=== PATIENT | male | born 1995 | race African-American/Black ===

== ENCOUNTER 2020-08-13 16:15 | Emergency (ER) | payer OTHER ==
--- OUTSIDE RECORDS SUMMARY | 2020-08-13 16:21 | XMS REPORT | Continuity of Care Document ---
:1995 Author Organization [facility] t Address [address] [place] [address] Care Team Providers Name Role Phone LIZETT Attending Clinician Unavailable BETTY Attending Clinician Unavailable Manuel Hernández Attending Clinician Sadaf Rodriguez Attending Clinician Tito Attending Clinician RUSSELL Attending Clinician Unavailable Jody Zimmerman Attending Clinician Tito Admitting Clinician Payers Payer Name Policy Type Policy Number Effective Date Expiration Date S ource Problems Condition Condition Condition Status Onset Resolution Last Treating Co mments Source Name Details Category Date Date Treatment Clinician Date BACK PAIN Diagnosis Active 2018-08-07 Memoria 01-14 19:15:00 l BACK 00:00: Zak PAIN 00 Active 01/14/2018 [facility] [place] SIDE PAIN Diagnosis Active 2017-12-02 Memoria 12-02 13:45:00 l SIDE 00:00: [place] PAIN 00 Active 12/02/2017 [facility] ACUTE PE Diagnosis Active 2018-08-07 M emoria 12-02 19:15:00 l ACUTE PE 00:00: Jose n 00 Active 12/02/2017 [facility] RIGHT ACL Diagnosis Active 2018-08-24 Memoria MCL 11-27 15:11:00 l RIGHT 07:30: [place] ACL MCL 00 Active 11/27/2017 [facility] R ACL Diagnosis Active 2017-12-24 Mem oria TEAR,MCL 11-12 11:32:00 l TEAR R ACL 00:00: [place] TEAR,MCL 00 TEAR Active 11/12/2017 [facility] Zak S83.511A - Diagnosis Active 2017-12-06 Memoria SPRAIN OF 11-07 13:18:00 l ANTERIOR S83.511A 00:01: Herm danny CRUCIATE L - SPRAIN 00 OF ANTERIOR CRUCIATE L Active 11/07/2017 [facility] SPRAIN Diagnosis Active 2018-08-24 Mem oria ANTERIOR 05-13 15:11:00 l SPRAIN 08:00: [place] ANTERIOR 00 Active 05/13/2017 [facility] PAIN R Diagnosis Active 2018-08-24 Mem oria KNEE 05-13 15:11:00 l PAIN R 08:00: [place] KNEE 00 Active 05/13/2017 [facility] LT ACL SX Diagnosis Active 2016-12-10 Memoria 09/26/1611-07 13:26:00 l LT ACL 12:00: [place] SX 00 09/26/16 Active 11/07/2016 [facility] RIGHT KNEE Diagnosis Active 2018-08-24 Memoria 09-26 15:11:00 l RIGHT 08:00: [place] KNEE 00 Active 09/26/2016 [facility] LT KNEE Diagnosis Active 2018-03-11 Me moria 09-26 14:09:00 l LT KNEE 08:00: [place] 00 Active 09/26/2016 [facility] RIGHT ACL Diagnosis Active 2018-08-24 Memoria MCL 09-26 15:11:00 l SURGERY RIGHT 08:00: [place] ACL MCL 00 SURGERY Active 09/26/2016 [facility] LEFT ACL Diagnosis Active 2016-10-16 M emoria TEAR 09-17 20:07:00 l LEFT ACL 00:00: Jose n TEAR 00 Active 09/17/2016 [facility] Zak LEFT KNEE Diagnosis Active 2017-2017-08-15 Memoria 5-07 12:12:00 l LEFT 08:00: [place] KNEE 00 Active 09/16/2016 [facility] M23.671 - Diagnosis Active 2016-07-18 Memoria OTH SPON 3-02 15:51:00 l DISRUPTION M23.671 00:01: [place] OF CAPSULA - OT SPON 00 DISRUPTION OF CAPSULA Active 07/12/2016 DILLAN [place] Acute Acute Problem Active [facility] medial medial ity of meniscal meniscal [place] tear, tear, Physici right, right, ans initial initial encounter encounter Sprain of Problem 2018-12-01 Ma moria anterior 11:10:38 l cruciate Sprain Jose n ligament of of right anterior knee, cruciate subsequent ligament encounter of right knee, subsequent encounter 12/01/2018 Enrrique Pena [facility] Sprain of Problem 2017-11-14 Me moria anterior 11:43:13 l cruciate Sprain Jose n ligament of of left anterior knee, cruciate subsequent ligament encounter of left knee, subsequent encounter 11/14/2017 [facility] Pain in Problem 2017-11-14 Elgin melba left knee 11:43:13 l Pain in [place] left knee 11/14/2017 [facility] Weakness Problem 2018-12-01 Mem oria 11:10:38 l Weakness Jose n 12/01/2018 [facility] Other Problem 2018-12-01 Memor ia abnormalit 11:10:38 l ies of Other Zak gait and abnormalit mobility ies of gait and mobility 12/01/2018 [facility] Other Problem 2018-06-17 Memor ia postproced 13:07:32 l ural Other Zak complicati postproced ons and ural disorders complicati of ons and respirator disorders y system, of not respirator elsewhere y system, classified not elsewhere classified 06/17/2018 [facility] Laryngeal Problem 2018-06-17 Ma moria spasm 13:07:32 l [place] Laryngeal spasm 06/17/2018 [facility] Hypoxemia Problem 2018-06-17 Me moria 13:07:32 l [place] Hypoxemia 06/17/2018 [facility] Other Problem 2018-06-17 Memor ia acute 13:07:32 l postproced Other Ne nn ural pain acute postproced ural pain 06/17/2018 [facility] Fall on Problem 2018-06-17 [place] melba same level 13:07:32 l from Fall on [place] slipping, same level tripping from and slipping, stumbling tripping without and subsequent stumbling striking without against subsequent object, striking initial against encounter object, initial encounter 06/17/2018 [facility] Sprain of Problem 2018-06-17 Me moria medial 13:07:32 l collateral Sprain Herm danny ligament of medial of right collateral knee, ligament initial of right encounter knee, initial encounter 06/17/2018 [facility] Other tear Problem 2018-06-17 M emoria of medial 13:07:32 l meniscus, Other Jose n current tear of injury, medial right meniscus, knee, current initial injury, encounter right knee, initial encounter 06/17/2018 [facility] Unspecifie Problem 2018-06-17 M emoria d 13:07:32 l dislocatio Jose n n of right Unspecifie knee, d initial dislocatio encounter n of right knee, initial encounter 06/17/2018 [facility] Chondromal Problem 2018-06-17 M emoria acia 13:07:32 l patellae, [place] right knee Chondromal acia patellae, right knee 06/17/2018 [facility] Other Problem 2018-06-17 Memor ia synovitis 13:07:32 l and Other [place] tenosynovi synovitis tis, right and lower leg tenosynovi tis, right lower leg 06/17/2018 [facility] Anxiety Problem 2018-06-23 [place] melba disorder, 14:16:23 l unspecifie Anxiety [place] d disorder, unspecifie d 06/23/2018 [facility] Sprain of Problem 2018-12-01 Me moria medial 11:10:38 l collateral Sprain Herm danny ligament of medial of right collateral knee, ligament subsequent of right encounter knee, subsequent encounter 12/01/2018 Enrrique Hassan [facility] Derangemen Problem 2018-12-01 M emoria t of 11:10:38 l unspecifie Jose n d medial Derangemen meniscus t of due to old unspecifie tear or d medial injury, meniscus right knee due to old tear or injury, right knee 12/01/2018 [facility] Muscle Problem 2018-08-27 Memor ia weakness 11:41:38 l (generaliz Muscle Herm danny ed) weakness (generaliz ed) 08/27/2018 [facility] Stiffness Problem 2018-12-01 Me moria of right 11:10:38 l knee, not Zak elsewhere Stiffness classified of right knee, not elsewhere classified 12/01/2018 [facility] Internal Internal Problem Active Unive rs derangemen derangemen it y of t of right t of right [place] knee knee Physici involving involving ans capsular capsular ligament ligament detention Problem 2018-08-03 Me moria (current) 14:35:14 l use of Long Zak anticoagul term ants (current) use of anticoagul ants 9 [facility] Personal Problem 2018-08-03 Mem oria history of 14:35:14 l pulmonary Personal [place] embolism history of pulmonary embolism 08/03/2018 [facility] Allergy Problem 2018-08-03 [place] melba status to 14:35:14 l penicillin Allergy [place] status to penicillin 08/03/2018 [facility] Knee pain Problem Active 2018-12-01 Me moria (finding) 11:10:38 l Knee Zak pain (finding) Active Problem 12/01/2018 Enrrique Hassan [facility], [facility] Rupture of Problem Active 2018-12-01 M emoria medial 11:10:38 l collateral Rupture [place] ligament of medial of knee collateral (disorder) ligament of knee (disorder) Active Problem 12/01/2018 RIGHT KNEE 01/2017 Enrrique Hassan [facility] OTHER Diagnosis Active 2018-08-07 Mem oria PULMONARY 19:15:00 l EMBOLISM OTHER Zak WITHOUT PULMONARY ACUTE C EMBOLISM WITHOUT ACUTE C Active [facility] Internal Internal Problem Active Unive rs derangemen derangemen it y of t of left [place] of [place] knee knee Physici ans Rupture of Rupture of Problem Active U nivers anterior anterior ity of cruciate cruciate [place] ligament ligament Physic i of right of right ans knee, knee, initial initial encounter encounter Complete Complete Problem Active Unive rs tear of tear of ity of medial medial [place] collateral collateral Ph ysici ligament ligament ans of right of right knee, knee, initial initial encounter encounter Dislocatio Dislocatio Problem Active U nivers n of right n of right it y of knee, knee, [place] initial initial Physici encounter encounter ans History of Past Illness Condition Condition Condition Status Onset Resolution Last Treating Co mments Source Name Details Category Date Date Treatment Clinician Date Pain in Problem 2018-2018-12-01 2018-12-01 Memoria right knee 1-06 11:10:38 11:10:38 l Pain in 04:15: Zak right knee 18 05/18/2018 12/01/2018 [facility] Chest Problem 2017-2018-08-03 2018-08-03 M emoria pain, 9- 14:35:14 14:35:14 l unspecifie Chest 05:00: Ne nn d pain, 00 unspecifie d 01/14/2018 08/03/2018 [facility] Other Problem 2017-2018-06-23 2018-06-23 M emoria pulmonary 8- 14:16:23 14:16:23 l embolism Other 03:09: Zak without pulmonary 35 acute cor embolism pulmonale without acute cor pulmonale 12/13/2017 06/23/2018 [facility] Sprain of Problem 2017-2018-06-17 2018-06-17 Memoria anterior 12-09 13:07:32 13:07:32 l cruciate Sprain 02:39: Jose n ligament of 22 of right anterior knee, cruciate initial ligament encounter of right knee, initial encounter 12/09/2017 06/17/2018 [facility] Allergies, Adverse Reactions, Alerts Allergy Allergy Status Severity Reaction(s) Onset Inactive Treating Comm ents Source Name Type Date Date Clinician No Known DA Active U 2019- [facility] Allergie 3-13 [place] s 00:00: d 00 [facility] No Known DA Active U [facility] Allergie - Clear s 00:00: Allen 00 [facility] No Known DA Active U [facility] Allergie 9-14 Clear s 00:00: Allen 00 [facility] penicill penicill Active Memori a ins ins l Zak traMADol traMADol Active Memori a l Zak Social History Social Habit Start Date Stop Date Quantity Comments Source Social History 2017-12-03 2017-12-03 [facility] ermann 01:36:04 01:36:04 Medications Ordered Filled Start Stop Current Ordering Indication Dosage Frequency Signature Comments Components Source Medication Medication Date Date Medication? Clinician (SIG) Name Name Ap No Notes: Memoria Flush 0.9% -04 (Same as: l 22:14: BD Zak 00 Posiflush) Promethazin Promethazin Yes HARINI VENCESEKS Q4H TAKE 1 [facility] e HCl - e HCl - 8-16 M.D. TABLET ity of 12.5 MG 12.5 MG 00:00: EVERY 4 [place] Oral Tablet Oral Tablet 00 HOURS Physici NEEDED. ans Cyclobenzap Cyclobenzap Yes HARINI BETTY Q0.3333D TAKE 1 Univers rine HCl - rine HCl - 8-06 M.D. TABLET 3 ity of 10 MG Oral 10 MG Oral 00:00: TIMES [place] Tablet Tablet 00 DAILY Physici NEEDED. ans rivaroxaban Yes 15 mg = 1 M emoria 15 mg oral 7-25 tab, PO, l tablet 20:14: Q12H, [place] 00 please complete prior to starting xarelto 20mg po daily., # 42 tab, 0 Refill(s), Pharmacy: [facility] naproxen No 500 mg = 1 Mem oria 500 mg oral 7-25 tab, PO, l tablet 20:14: Q12H, X 14 Ne nn 00 day, # 28 tab, 0 Refill(s), Pharmacy: [facility] Docusate No Notes: Memoria Sodium 100 7-25 (Same as: l MG Oral 15:14: Colace) Zak Capsule 00 (Do Not [Colace] Crush) Ketorolac No 4 days. [place] melba 7-25 l 05:27: [place] 00 Maalox No Notes: Memoria Advanced 7-25 (aluminum l Regular 04:04: hydroxide- Herm danny Strength 00 magnesium SUSP hyd-simeth icone 200-200-20 mg/5ml 30 ml ud RO) Naprosyn No Notes: Memoria 7-25 (Same as: l 02:55: Naprosyn) Take with food. Naproxen No Notes: Memoria 7-25 (Same as: l 02:00: Naprosyn) Take with food. Xarelto No Notes: Memoria 7- (Same as: l 02:00: Xarelto) Administer with food Valium No Notes: Memoria 7-24 (Same as: l 22:15: Valium) Valium No Notes: Memoria 7-24 (Same as: l 17:56: Valium) Dilaudid No Notes: Memoria 7-24 Same as: l 17:56: Dilaudid Dilaudid No Notes: Memoria 7-24 Same as: l 17:49: Dilaudid Dilaudid No Notes: Memoria 7-24 Same as: l 10:49: Dilaudid Acetaminoph Yes 1 tab, PO, Memoria en 325 MG / 24 Q6H, PRN l Hydrocodone 10:48: Pain Score Zak Bitartrate 00 7-10, 0 7.5 MG Oral Refill(s) Tablet [[place] 7.5/325] promethazin Yes 12.5 mg = M emoria e 12.5 mg 24 1 tab, PO, l oral tablet 10:48: Q6H, PRN He [place] 00 as needed for nausea/vom iting, 0 Refill(s) tramadol Yes 50 mg = 1 [place] melba hydrochlori 7-24 tab, PO, l de 50 MG 10:48: Q4H, PRN Ne nn Oral Tablet 00 Pain Score 4-6, 0 Refill(s) Cyclobenzap Yes 10 mg = 1 M emoria rine 7-24 tab, PO, l hydrochlori 10:48: TID, PRN He r[place] de 10 MG 00 Spasm, 0 Oral Tablet Refill(s) [Flexeril] Lovenox No Notes: Memoria 7 Nurse to l 10:00: ensure documentat ion of patient education per anticoagul ation policy. (Same as: Lovenox) Lovenox No Notes: Memoria 12-02 Nurse to l 22:00: ensure [place] 00 documentat ion of patient education per anticoagul ation policy. (Same as: Lovenox) Ondansetron No Notes: [place] melba 12-02 (Same as: l 21:31: Zofran) MEDICATION WASTE Product Size: 4 mg Product Wasted: ___ mg Acetaminoph No Notes: Do M emoria en 12-02 not exceed l 21:31: 4 gm/day. Zak 00 (Same as: Tylenol) Morphine No 2 mg, 1 Memori a 12-02 mL, Route: l 21:31: IVP, Drug form: SOLN, Q4H, Dosing Weight 65.909, kg, PRN Pain Score 7-10, Start date: 12/02/17 16:31:00 CDT, Duration: 30 day, Stop date: 01/01/18 16:30:00 CDT Acetaminoph No Notes: [place] melba en 325 MG / 12-02 (Same as: l Hydrocodone 21:31: [place] Ne nn Bitartrate 00 325/5) Do 5 MG Oral not exceed Tablet 4gm/day of acetaminop hen. Lovenox No 65.909 mg, [place] melba 12-02 Route: l 20:34: SUB-Q, Drug form: INJ, ONCE, Dosing Weight 65.909, kg, Priority: STAT, Start date: 12/02/17 15:34:00 CDT, Stop date: 12/02/17 15:34:00 CDT Zofran No 4 mg, Memoria 12-02 Route: l 20:34: IVP, Drug form: INJ, ONCE, Dosing Weight 65.909, kg, Priority: STAT, Start date: 12/02/17 15:34:00 CDT, Stop date: 12/02/17 15:34:00 CDT Morphine No 4 mg, Memoria 12-02 Route: l 20:34: IVP, ONCE, Dosing Weight 65.909, kg, Priority: STAT, Start date: 12/02/17 15:34:00 CDT, Stop date: 12/02/17 15:34:00 CDT Ketorolac No 4 days Memor ia 12-02 l 18:32: MEDICATION [place] WASTE Product Size: 30 mg Product Wasted: ___ mg Sodium No 1,000 mL, Memori a Chloride 12-02 1000 l 0.9% 18:26: ml/hr, Zak (Bolus) IV 00 Infuse Over: 1 hr, Route: IV, 1,000, Drug form: INJ, ONCE, Priority: STAT, Dosing Weight 66.364 kg, Start date: 12/02/17 13:26:00 CDT, Stop date: 12/02/17 13:26:00 CDT Saline No Notes: Memoria Flush 0.9% 12-02 (Same as: l 18:26: BD Zak Posiflush) acetaminoph No Notes: Max Memoria en 11-28 acetaminop l 03:00: hen 4000 [place] 00 mg/day (4 gm/day). (Same as: Tylenol Extra Strength) pregabalin No Notes: Memor ia 11-28 (Same as: l 02:00: Lyrica) Zak celecoxib No Notes: Memori a 11-28 NSAID. l 02:00: Please Zak 00 check indication . Not for seizure. (Same As: CeleBREX) sennosides, No Notes: [place] melba RETIREMENT 11-28 (Same as: l 02:00: Senokot) [place] Docusate No Notes: Memoria 7-19 (Same as: l 02:00: Colace) [place] (Do Not Crush) Ondansetron No Notes: [place] melba -18 (Same as: l 21:09: Zofran) [place] 00 MEDICATION WASTE Product Size: 4 mg Product Wasted: ___ mg Zofran ODT No Notes: Memor ia -18 (Same as: l 21:07: Zofran [place] 00 ODT) Acetaminoph No Notes: [place] melba en 7-18 Infuse l 21:00: over 15 [place] minutes Do not exceed 4gm/day of acetaminop hen MEDICATION WASTE Product Size: 1000 mg Product Wasted: ___ mg cyclobenzap No Notes: [place] melba rine 18 (Same As: l 20:59: Flexeril) Hydromorpho No Notes: [place] melba ne 18 Same as l 20:59: Dilaudid Oxycodone No Notes: Memori a Hydrochlori 18 (Same as: l de 5 MG 20:59: Roxicodone Herm danny Oral Tablet ) Hydroxyzine No Notes: [place] melba 18 (Same as: l 20:59: Vistaril) Melatonin No Notes: Memori a -18 (Same as: l 20:59: Melatonin) Lorazepam No Notes: Memori a -18 (Same as: l 20:59: Ativan) Promethazin No Notes: [place] melba e 18 (Same as: l 20:59: Phenergan) Ondansetron No Notes: [place] melba 18 (Same as: l 20:59: Zofran) MEDICATION WASTE Product Size: 4 mg Product Wasted: ___ mg Albuterol No Notes: SEE Me moria 0.83 MG/ML 18 RT l Inhalant 18:08: DOCUMENTAT [place] Solution 00 ION (Same as: Proventil) Albuterol No 2.5 mg, 3 Mem oria 0.83 MG/ML 7-18 mL, Route: l Inhalant 18:06: NEB, ONCE, Her ofrd Solution 00 Dosing Weight 66.364, kg, Start date: 11/27/17 13:06:00 CDT, Stop date: 11/27/17 13:06:00 CDT ketOROLAC No IV, ONCE [place] melba (ANES) 11-27 l 16:55: Zak dexamethaso No Route: IV, Memoria ne (ANES) 7-18 Drug form: l 16:49: INJ, ONCE, [place] Stop date: 11/27/17 11:49:00 CDT ondansetron No Route: IV, Memoria (ANES) 11-27 Drug form: l 16:49: INJ, ONCE, Zak Stop date: 11/27/17 11:49:00 CDT Acetaminoph No Notes: Do M emoria en 325 MG / 11-27 not exceed l Hydrocodone 16:29: 4gm/day of [place] Bitartrate 00 acetaminop 10 MG Oral hen. Tablet (Same as: [place] 325/10) Morphine No Notes: Memoria 11-27 (Same l 16:29: as:MORPhin Zak 00 e Sulfate) acetaminoph No Route: IV, Memoria en (ANES) 11-27 Drug form: l 10 mg 15:22: INJ, Start Jose n date: 11/27/17 10:22:00 CDT, Stop date: 11/27/17 11:22:00 CDT propofol No Route: IV, Mem oria (ANES) 11-27 Drug form: l 13:59: INJ, ONCE, Stop date: 11/27/17 8:59:00 CDT fentaNYL No Route: IV, Mem oria (ANES) 11-27 Drug form: l 13:59: INJ, ONCE, [place] 00 Stop date: 11/27/17 8:59:00 CDT lidocaine No Route: IV, Me moria (ANES) 11-27 Drug form: l 13:59: INJ, ONCE, [place] Stop date: 11/27/17 8:59:00 CDT midazolam No Route: IV, Me moria (ANES) 11-27 Drug form: l 13:55: SOLN, [place] 00 ONCE, Stop date: 11/27/17 8:55:00 CDT ceFAZolin No Route: IV, Me moria (ANES) 1000 11-27 Drug form: l mg 12:59: INJ, Start Zak date: 11/27/17 7:59:00 CDT, Stop date: 11/27/17 8:59:00 CDT Lactated No Route: IV, Mem oria Ringers 11-27 Total l Injection 12:48: Volume: Ne nn IV (ANES) 00 1,000, 1000 mL Start date: 11/27/17 7:48:00 CDT, Stop date: 11/27/17 8:48:00 CDT Zofran ODT No Notes: Memor ia 11-27 (Same as: l 12:38: Zofran ODT) Hydromorpho No Notes: [place] melba ne 11-27 Same as l 12:35: Dilaudid Flumazenil No Notes: Memor ia 11-27 (Same as: l 12:35: Romazicon) Naloxone No Notes: Memoria 11-27 Same as l 12:35: Narcan Ondansetron No Notes: [place] melba 11-27 (Same as: l 12:35: Zofran) MEDICATION WASTE Product Size: 4 mg Product Wasted: ___ mg vancomycin No Route: IV, M emoria (ANES) 1000 11-27 Drug form: l mg 11:00: INJ, Start date: 11/27/17 6:00:00 CDT, Stop date: 11/27/17 7:00:00 CDT Diclofenac Diclofenac Yes HARINI HERNÁNDEZ QD APPLY TO Univers Sodium 1 % Sodium 1 % 2-20 M.D. LOWER it y of Transdermal Transdermal 00:00: SANTOSH [place] Gel Gel 00 S, 4 GM OF Physici GEL TO ans AFFECTED AREA 4 TIMES DAILY. DO NOT APPLY MORE THAN 16 GM DAILY TO ANY ONE AFFECTED JOINT. Vitamin D Vitamin D Yes HARINI HERNÁNDEZ TAKE 1 Univers (Ergocalcif (Ergocalcif 6-13 M.D. CAPSULE ity of cande) 70925 cande) [address]1201 00:00: WEEKLY. [place] UNIT Oral UNIT Oral 00 Physi ci Capsule Capsule ans Promethazin Promethazin Yes HARINI HERNÁNDEZ TAKE 1 Univers e HCl - e HCl - 5-25 M.D. TABLET ity of 12.5 MG 12.5 MG 00:00: EVERY 4 [place] Oral Tablet Oral Tablet 00 6 HOURS Physici NEEDED FOR ans NAUSEA. Ondansetron No 4 mg, Memor ia 5-17 Route: IV, l 22:08: ONCE, Dosing Weight 63.182, kg, Start date: 09/26/16 17:08:00 CDT, Stop date: 09/26/16 17:08:00 CDT Hydromorpho No Notes: [place] melba ne 5-17 Same as l 21:23: Dilaudid Acetaminoph No Notes: Do M emoria en 325 MG / 5-17 not exceed l Hydrocodone 20:24: 4gm/day of Bitartrate acetaminop 10 MG Oral hen. Tablet (Same as: [place] 325/10) Tramadol No Notes: Not Mem oria 5-17 to exceed l 20:24: 400mg/day. (Same As: Ultram) Ondansetron No Notes: [place] melba 5-17 (Same as: l 18:34: Zofran) MEDICATION WASTE Product Size: 4 mg Product Wasted: ___ mg Naloxone No Notes: Memoria 5-17 Same as l 18:34: Narcan Flumazenil No Notes: Memor ia 5-17 (Same as: l 18:34: Romazicon) Morphine No Notes: Memoria 5-17 (Same l 18:34: as:MORPhin e Sulfate) Oxycodone No Notes: Memori a 5-17 (Same as: l 18:34: Roxicodone ) Lactated No 1,000 mL, [place] melba Ringers 5-17 Rate: 40 l 1,000 mL 16:01: ml/hr, Infuse over: 25 hr, Route: IV, Dosing Weight 63.182 kg, Total Volume: 1,000, Start date: 09/26/16 11:01:00 CDT, Duration: 30 day, Stop date: 10/26/16 11:00:00 CDT Vancomycin 2017-0 No 2001 mg: Me moria 5-17 infuse l 16:01: over 2.5 Zak 00 hours MEDICATION WASTE Product Size: 1000 mg Product Wasted: ___ mg Vital Signs Vital Name Observation Time Observation Value Comments Source Systolic (mm Hg) 2018-01-15 01:55:00 [place] rial Zak Diastolic (mm Hg) 2018-01-15 01:55:00 Mem orial [place] Respitory Rate 2018-01-15 01:55:00 Memori al Zak Heart Rate 2018-01-15 01:55:00 Memorial Zak Temperature Oral (F) 2018-01-15 01:55:00 98.3 F Memorial [place] Weight 2018-01-14 22:12:00 Memorial Zak Respitory Rate 2018-01-14 22:12:00 Memori al [place] BMI Calculated 2018-01-14 22:12:00 Memori al [place] Height 2018-01-14 22:12:00 170.18 cm Memorial [place] Temperature Oral (F) 2018-01-14 22:12:00 97.9 F Memorial Zak Heart Rate 2018-01-14 22:12:00 Memorial [place] Systolic (mm Hg) 2018-01-14 22:12:00 [place] rial Zak Diastolic (mm Hg) 2018-01-14 22:12:00 Mem orial Zak Heart Rate 2017-12-04 21:00:00 Memorial [place] Respitory Rate 2017-12-04 21:00:00 Memori al [place] Temperature Oral (F) 2017-12-04 21:00:00 97.9 F Memorial Zak Systolic (mm Hg) 2017-12-04 21:00:00 [place] rial Zak Diastolic (mm Hg) 2017-12-04 21:00:00 Mem orial Zak Heart Rate 2017-12-04 17:00:00 Memorial [place] Systolic (mm Hg) 2017-12-04 17:00:00 [place] rial Zak Diastolic (mm Hg) 2017-12-04 17:00:00 Mem orial Zak Respitory Rate 2017-12-04 17:00:00 Memori al [place] Temperature Oral (F) 2017-12-04 17:00:00 98.4 F Memorial Zak Respitory Rate 2017-12-04 16:44:00 Memori al Zak Temperature Oral (F) 2017-12-04 13:00:00 98.6 F Memorial Zak Systolic (mm Hg) 2017-12-04 13:00:00 [place] rial Zak Diastolic (mm Hg) 2017-12-04 13:00:00 Mem orial Zak Heart Rate 2017-12-04 13:00:00 Memorial Zak BMI Calculated 2017-12-03 01:29:00 Memori al Zak Weight 2017-12-03 01:29:00 [facility] [place] Height 2017-12-03 01:29:00 170.18 cm Memorial Zak Weight 2017-12-02 18:20:00 Memorial Zak BMI Calculated 2017-12-02 18:20:00 Memori al [place] Height 2017-12-02 18:20:00 182.88 cm Memorial [place] Systolic (mm Hg) 2017-11-28 12:25:00 [place] rial Zak Diastolic (mm Hg) 2017-11-28 12:25:00 Mem orial Zak Heart Rate 2017-11-28 12:25:00 Memorial Zak Temperature Oral (F) 2017-11-28 12:25:00 97.8 F [facility] Zak Respitory Rate 2017-11-28 12:25:00 Memori al Zak Respitory Rate 2017-11-28 11:39:00 Memori al [place] Heart Rate 2017-11-28 11:06:00 Memorial Zak Respitory Rate 2017-11-28 11:06:00 Memori al Zak Heart Rate 2017-11-28 09:04:00 Memorial Zak Temperature Oral (F) 2017-11-28 08:40:00 98 F Memorial [place] Systolic (mm Hg) 2017-11-28 08:40:00 [place] rial Zak Diastolic (mm Hg) 2017-11-28 08:40:00 Mem orial Zak Temperature Oral (F) 2017-11-28 04:10:00 98 F Memorial Zak Systolic (mm Hg) 2017-11-28 04:10:00 Elgin rial Zak Diastolic (mm Hg) 2017-11-28 04:10:00 Mem orial Zak BMI Calculated 2017-11-27 11:00:00 Memori al [place] Weight 2017-11-27 11:00:00 Memorial Zak Height 2017-11-27 11:00:00 170.18 cm Memorial Zak Heart Rate 2016-09-26 22:45:00 Memorial Zak Systolic (mm Hg) 2016-09-26 22:45:00 Elgin rial Zak Diastolic (mm Hg) 2016-09-26 22:45:00 Mem orial [place] Respitory Rate 2016-09-26 22:45:00 Memori al [place] Heart Rate 2016-09-26 21:45:00 Memorial Zak Respitory Rate 2016-09-26 21:45:00 Memori al Zak Systolic (mm Hg) 2016-09-26 21:45:00 [place] rial [place] Diastolic (mm Hg) 2016-09-26 21:45:00 Mem orial Zak Systolic (mm Hg) 2016-09-26 21:30:00 [place] rial [place] Diastolic (mm Hg) 2016-09-26 21:30:00 Mem orial [place] Respitory Rate 2016-09-26 21:30:00 Memori al [place] Heart Rate 2016-09-26 21:30:00 [facility] Temperature Oral (F) 2016-09-26 20:59:00 98.4 F [facility] Temperature Oral (F) 2016-09-26 15:29:00 98.4 F [facility] Weight 2016-09-26 14:50:00 [facility] BMI Calculated 2016-09-26 14:50:00 Memori al [place] Height 2016-09-19 16:16:[address] [facility] Procedure Date / Time Performing Clinician Source Performed [U] XRAY KNEE 1 OR 2 S 2018-01-23 00:00:00 [facility] [place] RIGHT 57837 Physicians [U] XRAY KNEE 1 OR 2 S 2017-12-11 00:00:00 [facility] [place] RIGHT 51102 Physicians [U] XRAY KNEE 1 OR 2 S 2017-12-05 00:00:00 [facility] [place] LEFT 41367 Physicians [U] XRAY KNEE 3 VWS LEFT 2017-12-04 00:00:00 [facility] [place] [address] Physicians ACL - Reconstruction of 2016-09-26 05:00:00 [place] rial [place] anterior cruciate ligament Arthroscopy of knee with Memoria l Zak meniscus repair Hernia repair [facility] Root canal procedure [facility] Encounters Start End Encounter Admission Attending Care Care Encounter Source Date/Time Date/Time Type Type Clinicians Facility Department ID 2020-05-03 2020-05-03 Emergency [facility] [id number] [place] 00:00:00 00:00:00 JUAN MANUEL 909 Metho di 2018-11-10 2018-11-10 [facility] [id number] Univers 13:15:00 13:15:00 t; HARINI HERNÁNDEZ M.D. - [facility] chani SCHULER M.D. [place] [facility] 2018-08-05 2018-08-05 [facility] 504 [id number] Univers 11:15:00 11:15:00 t; HARINI HERNÁNDEZ M.D. at [facility] chani SCHULER M.D. [place] [facility] 2018-06-26 2018-07-25 Outpatient Harini Hernández 2.16.840. 2.16.840. 1. [id number] 12:00:00 23:59:00 Manuel 1.432456. [id number] 12 3.615.57 5.57 2018-05-26 2018-06-24 Outpatient Harini Hernández 2.16.840. 2.16.840. 1. [id number] 15:00:00 23:59:00 Manuel 1.668053. 482756.3.61 11 3.615.57 5.57 2018-06-24 2018-06-24 [facility] 482 [id number] Univers 11:00:00 11:00:00 t; HARINI HERNÁNDEZ M.D. at [facility] chani SCHULER M.D. [place] [facility] 2018-04-14 2018-05-13 Outpatient Harini Hernández 2.16.840. 2.16.840. 1. [id number] 15:00:00 23:59:00 Manuel 1.191397. 972056.3.61 10 3.615.57 5.57 2018-04-22 2018-04-22 [facility] [id number] Univers 11:00:00 11:00:00 t; HARINI HERNÁNDEZ M.D. at [facility] Memo [facility]ULER. [facility] 2018-03-13 2018-04-11 Outpatient Harini Hernández 2.16.840. 2.16.840. 1. [id number] 14:01:00 23:59:00 Manuel 1.245293. [id number] 09 3.615.57 5.57 2018-02-10 2018-03-11 Outpatient Harini Hernández 2.16.840. 2.16.840. 1. [id number] 10:00:00 23:59:00 Manuel 1.642338. 282353.3.61 08 3.615.57 5.57 2018-02-20 2018-02-20 [facility] [id number] Univers 11:00:00 11:00:00 t; HARINI HERNÁNDEZ M.D. at [facility] Tila SCHULER [place] [facility] [place] 2018-01-09 2018-02-07 Outpatient Harini Hernández 2.16.840. 2.16.840. 1. [id number] 10:00:00 23:59:00 Manuel 1.050985. 542975.3.61 07 3.615.57 5.57 2018-01-23 2018-01-23 Appointmen [facility] Orth[facility] 447 [id number] Univers 11:15:00 11:15:00 t; HARINI HERNÁNDEZ M.D. at [facility] chani SCHULER M.D. [place] [facility] 2018-01-14 2018-01-14 Outpatient Jennifer, [facility] [id number] 17:01:00 20:57:00 Kameron Alvarado 2017-12-10 2018-01-08 Outpatient Harini Hernández 2.16.840. 2.16.840. 1. [id number] 16:00:00 23:59:00 Manuel 1.433141. 148695.3.61 06 3.615.57 5.57 2017-12-26 2017-12-26 Appointmen [facility] Orthopedics [id number] Univers 11:00:00 11:00:00 t; HARINI HERNÁNDEZ M.D. at [facility] Tila SCHULER [facility] 2017-12-12 2017-12-12 Appointmen [facility] [id number] Univers 11:15:00 11:15:00 t; HARINI HERNÁNDEZ M.D. i ty chani SCHULER M.D. [facility] 2017-12-12 2017-12-12 Appointmen [facility] Orthopedics [id number] Univers 08:15:00 08:15:00 t; HARINI HERNÁNDEZ M.D. at [facility] Tila SCHULER [facility] 2017-12-05 2017-12-05 Appointmen [facility] Orthopedics 434 [id number] Univers 10:45:00 10:45:00 t; HARINI HERNÁNDEZ M.D. at [facility] Tila SCHULER [facility] 2017-12-02 2017-12-04 Outpatient Francis, MHPL PL [id number] 13:15:00 18:20:00 Wilfredo 03 2017-11-27 2017-11-28 Outpatient Harini Hernández [facility] [id number] [id number] 16:09:00 13:16:00 Hume 2017-11-27 2017-11-27 Appointmen [facility] Orthopedics [id number] Univers 08:00:00 08:00:00 t; HARINI HERNÁNDEZ M.D. at [facility] Tila SCHULER [facility] 2017-11-12 2017-11-12 Appointmen BETTY [facility] [id number] Univers 09:30:00 09:30:00 t; HARINI HERNÁNDEZ M.D. i ty chani SCHULER M.D. [facility] 2017-11-07 2017-11-07 Outpatient Harini Hernández 2.16.840. 2.16.840. 1. [id number] 10:13:00 23:59:00 Manuel [id number]. 604130.3.61 01 3.615.67 5.67 2017-10-31 2017[facility] [id number] Univers 09:45:00 09:45:00 t; HARINI HERNÁNDEZ M.D. i ty of [place] SCHULER [facility] 2017-10-15 2017-10-15 [facility] [id number] Univers 11:00:00 11:00:00 t; HARINI HERNÁNDEZ M.D. i ty of [place] SCHULER [facility] 2017-09-12 2017-10-11 Outpatient Harini Hernández 2.16.840. 2.16.840. 1. [id number] 11:11:00 23:59:00 Manuel 1.494808. [id number] 05 3.615.57 5.57 2017-08-13 2017-09-11 Outpatient Harini Hernández 2.16.840. 2.16.840. 1. [id number] 15:03:00 23:59:00 Hume 1.103776. 431775.3.61 04 3.615.57 5.57 2017-08-13 2017-09-11 Outpatient Harini Hernández 2.16.840. 2.16.840. 1. [id number] 15:03:00 23:59:00 Manuel 1.078795. [id number] 04 3.615.57 5.57 2017-09-03 2017-09-03 [facility] [id number] Univers 11:00:00 11:00:00 t; HARINI HERNÁNDEZ M.D. i ty of [place] SCHULER [facility] 2017-07-10 2017-08-08 Outpatient Harini Hernández 2.16.840. 2.16.840. 1. [id number] 10:57:00 23:59:00 Manuel 1.760963. [id number] 03 3.615.57 5.57 2017-07-02 2017-07-02 Appointmen BETTY, [facility] UTP [id number] Univers 11:00:00 11:00:00 t; HARINI HERNÁNDEZ M.D. i ty of [place] SCHULER [place] [facility] 2017-04-02 2017-04-02 Appointmen BETTY, [facility] UTP [id number] Univers 11:00:00 11:00:00 t; HARINI HERNÁNDEZ M.D. i ty of [place] SCHULER [place] [facility] 2017-01-31 2017-01-31 Appointmen BETTY, [facility] UTP [id number] Univers 11:00:00 11:00:00 t; HARINI HERNÁNDEZ M.D. i ty of [place] SCHULER [place] [facility] 2017-01-22 2017-01-22 Appointmen BETTY, [facility] UTP [id number] Univers 11:00:00 11:00:00 t; HARINI HERNÁNDEZ M.D. i ty of [place] SCHULER [place] [facility] 2016-12-10 2017-01-08 Outpatient Harini Hernández 2.16.840. 2.16.840. 1. [id number] 13:24:00 23:59:00 Manuel Polo.[id number]. [id number] 02 3.615.57 5.57 2016-12-10 2016-12-10 Appointmen BETTY, [facility] UTP [id number] Univers 14:00:00 14:00:00 t; HARINI HERNÁNDEZ M.D. i ty of [place] SCHULER [place] [facility] 2016-11-07 2016-12-06 Outpatient Harini Hernández 2.16.840. 2.16.840. 1. [id number] 12:00:00 23:59:00 Manuel Polo.291954. [id number] 01 3.615.57 5.57 2016-11-06 2016-11-06 Appointmen BETTY, [facility] UTP [id number] Univers 09:00:00 09:00:00 t; HARINI HERNÁNDEZ M.D. i ty of [place] SCHULER [facility] 2016-10-04 2016-11-02 Outpatient Harini Hernández 2.16.840. 2.16.840. 1. [id number] 08:00:00 23:59:00 Manuel 1.378994. [id number] 00 3.615.57 5.57 2016-10-18 2016-10-18 [facility]IN HERN[facility]NDEZ UTP [id number] Univers 11:15:00 11:15:00 t; HARINI HERNÁNDEZ M.D. i ty of [place] SCHULER [facility] 2016-10-05 2016-10-05 [facility] CALVIN HERN[facility]NDEZ UTP [id number] Univers 09:15:00 09:15:00 t; HARINI EHRNÁNDEZ M.D. i ty of [place] SCHULER [facility] 2016-09-26 2016-09-26 Outpatient Harini Hernández [facility] [id number] 09:39:00 23:59:00 Hume 01 2016-09-26 2016-09-26 [facility] CAL[facility]IN HERN[facility]NDEZ UTP [id number] Univers 11:00:00 11:00:00 t; HARINI HERNÁNDEZ M.D. i ty of [place] SCHULER [facility] 2016-08-28 2016-08-28 [facility] CALVIN HERNÁNDEZ UTP [id number] Univers 14:15:00 14:15:00 t; HARINI HERNÁNDEZ M.D. i ty of [place] SCHULER [facility] 2016-08-07 2016-08-07 [facility] CAL[facility]IN HERN[facility]NDEZ UTP [id number] Univers 14:00:00 14:00:00 t; HARINI HERNÁNDEZ M.D. i ty of [place] SCHULER [facility] 2016-07-20 2016-07-20 [facility] UTP [id number] Univers 13:15:00 13:15:00 t; krishan FLORES M.D. [place] Sagar FLORES M.D. [facility] [place] 2016-07-18 2016-07-18 Outpatient SILAS Zimmerman [facility] [id number] 15:42:00 23:59:00 Janny 00 Jody 2016-07-11 2016-07-11 CALVIN Longo [facility] [id number] Univers 15:00:00 15:00:00 mikala; krishan FLORES M.D. [place] Sagar FLORES M.D. ans Results Test Description Test Time Test Comments Results Result [facility] e Comments - CTA CHEST FOR PE 2020-07-11 22:34:00 [facility] 1995 Sex: M Name: NOHEMY CLANCY BRENDA Count includes the [facility] : 1995 Age/S: 25 / M [address] [facility] Unit #: [id number] Loc: [place] [address] Phys: Marquita Fitch MD Acct: [id number] Dis Date: Status: [facility] ER PHONE #: [phone] Exam Date: 07/11/20202216 FAX #: Reason: history of PE now with CP EXAMS: CPT: [id number] [place] 24337 EXAMINATION: - CTA CHEST FOR PE LOCATION: H61 CLINICAL HISTORY/INDICATION: history of PE now with CP COMPARISON: CT chest 12/21/2018 TECHNIQUE: Axial CT images were obtained from the thoracic inlet to the adrenal glands before and after intravenous contrast administration, per PE protocol. Coronal and sagittal reformatted images were obtained from the axial data set. Maximum intensity projection reconstruction images were also performed on a separate workstation and submitted for interpretation. This examination was performed according to our departmental dose optimization program, which includes automated exposure control, adjustment of the mA and/or kV according to patient size, and/or use of iterative reconstruction technique. FINDINGS: PULMONARY ARTERIES: There are no filling defects demonstrated in the pulmonary arteries. The pulmonary artery trunk is normal in size. LINES/TUBES/DEVICE: None. LUNGS AND AIRWAYS: Trachea and bronchi are clear. No pulmonary consolidations or masses. PLEURA: No pneumothorax or pleural effusion. THYROID GLAND: Normal. HEART AND MEDIASTINUM: Heart is normal in size without pericardial effusion. Conventional branching pattern of the aorta without aneurysm or dissection. Origins of great vessels are patent.. Trachea and esophagus appear normal. ADENOPATHY: None. EXTERNAL SOFT TISSUE: No abnormalities. UPPER ABDOMEN: Limited views of the upper abdomen show no abnormality within the visualized liver, spleen, pancreas, or kidneys. The adrenal glands are normal. PAGE 1 Signed Report (CONTINUED) Name: JULIETHNOHEMY GUTIERREZ Count includes the [facility] : 1995 Age/S: 25 / M [address] [address] [place] Unit #: [id number] Loc: [place] [address] Phys: Marquita Fitch MD Acct: [id number] Dis Date: Status: REG ER PHONE #: [phone] Exam Date: 07/11/20202216 FAX #: Reason: history of PE now with CP EXAMS: CPT: [id number] [place] [address] <Continued> BONES: Regional osseous structures are intact. IMPRESSION: 1. No pulmonary embolism. 2. No acute pulmonary findings. at 2234 Reported and signed by: Marielena Manzo M.D. CC: Marquita Fitch MD Technologist:Dinora Hutchins, RT(R)(CT) CTDI: DLP: Trnscb Date/Time: 07/11/2020 (2233) [email or web address] Orig Print D/T: S: 07/11/2020 (2236) PAGE 2 Signed Report - XR CHEST 2 V 2020-07-11 22:29:00 [facility] 1995 Sex: M Name: NOHEMY CLANCY JR [facility] : 1995 Age/S: 25 / M [address] [address] Unit #: [id number] Loc: [place] [address] Phys: Marquita Fitch MD Acct: [id number] Dis Date: Status: REG ER PHONE #: [phone] Exam Date: 07/11/20202216 FAX #: Reason: chest pain EXAMS: CPT: [id number] XR CHEST 2 V 78663 Fluoro Time: DAP (Gy m2): Air Kerma (mGy): Site ID: [id number] HISTORY: Chest pain FINDINGS: The lungs are clear and normally expanded. The heart and pulmonary vasculature is normal. Osseous structures are unremarkable. IMPRESSION: Negative chest X-ray. at 2229 Reported and signed by: Benitez Tatum M.D. CC: Marquita Fitch MD PAGE 1 Signed Report Name: NOHEMY CLANCY JR [facility] : 1995 Age/S: 25 / M [address] [place] [address] Unit #: [id number] Loc: [place] [address] Phys: Marquita Fitch MD Acct: [id number] Dis Date: Status: REG ER PHONE #: [phone] Exam Date: 07/11/20202216 FAX #: Reason: chest pain EXAMS: CPT: [id number] XR CHEST 2 V 91944 Fluoro Time: DAP (Gy m2): Air Kerma (mGy): <Continued> Technologist: Dinora Hutchins, RT(R)(CT) Trnscb Date/Time: 07/11/2020 (2228) [email or web address] Orig Print D/T: S: 07/11/2020 (3776) PAGE 2 Signed Report BASIC METABOLIC PANEL 2020-07-11 21:38:00 Test Item Value Reference Range Interpretation Comme nts SODIUM (test code = NA) 141 mmol/L 134-147 N POTASSIUM (test code = K) 3.5 mmol/L 3.4-5.0 N CHLORIDE (test code = CL) 106 mmol/L 100-108 N CARBON DIOXIDE (test code = CO2) 29 mmol/L 21-32 N ANION GAP (test code = GAP) 6.0 GAP calc 4.0-15.0 N GLUCOSE (test code = GLU) 103 MG/DL 70-110 N BLOOD UREA NITROGEN (test code = BUN) 9 MG/DL 7-18 N GLOMERULAR FILTRATION RATE (test code = GFR) >=60 max estimate estG FR >60 CREATININE (test code = CREAT) 1.0 MG/DL 0.8-1.3 N CALCIUM (test code = CA) 9.1 MG/DL 8.5-10.1 N Completed by Nursing: NOCREATINE KINASE (CK)2020-07-11 21:38:00 Test Item Value Reference Range Interpretation Comments CREATINE KINASE (CK) (test code = 228 Unit/L 26-192 H CK) Completed by Nursing: NONT PRO-BRAIN NATRIURETIC [id number] 21:38:00 Test Item Value Reference Range Interpretation Comments NT PRO-BRAIN NATRIURETIC PEPTI (test 15 PG/ML 0-100 N code = PROBNP) Completed by Nursing: [id number] 21:38:00 Test Item Value Reference Range Interpretation Comments TROPONIN-I (test < 0.015 NG/ML 0.000-0.045 N Negative: </= 0.045 code = TROPI) Positive: >/= 0.046 Correlation wit h serial results, other cardiac markers, and cl inical findings is nec essary to determine the c linical significance of this result. Quantit ative results using d ifferent methodologies s hould not be compared to one another as nume rical results may inocencio yby method. Completed by Nursing: [id number] 21:25:00 Test Item Value Reference Range Interpretation Comments D-DIMER (test code = DDIMER) < 215 ng/mLFEU 215-500 L CBC W/O [id number] 21:18:00 Test Item Value Reference Range Interpretation Comments WHITE BLOOD CELL (test code = WBC) 5.0 K/mm3 3.5-11.0 N RED BLOOD CELL (test code = RBC) 5.20 M/mm3 4.70-6.10 N HEMOGLOBIN (test code = HGB) 15.7 G/DL 12.3-15.9 N HEMATOCRIT (test code = HCT) 46.9 % 35.8-46.7 H MEAN CELL VOLUME (test code = MCV) 90.2 Fl 86.3-98.9 N MEAN CELL HGB (test code = MCH) 30.2 pg 28.9-34.4 N MEAN CELL HGB CONCETRATION (test 33.5 G/DL 32.1-34.5 N code = MCHC) RED CELL DISTRIBUTION WIDTH (test 12.4 SD 11.5-14.5 N code = RDW) PLATELET COUNT (test code = PLT) 185 K/mm3 150-450 N MEAN PLATELET VOLUME (test code = 10.30 fL 7.0-9.6 H MPV) DNA PROBE CHLAMYDIA [id number] 06:08:00 Test Item Value Reference Range Interpretation Comments DNA PROBE CHLAMYDIA Negative Negative (test code = DNACH) DNA PROBE N.GONORRHEA Negative Negative Perfor med At: (GC) (test code = [facility] Sa n DNAGC) [id number] [place], [place] [id number] jeanne Rodas Ph:[phone] [id number] 16:05:00 RUN DATE: 07/27/19 [facility] PAGE 1 RUN TIME: 1605 Specimen Inquiry RUN USER: INTERFACE PATIENT: NOHEMY CLANCY JR LOC: [place] U #: [id number] AGE/SX: 24/M ROOM: [facility] RE07/20/19REG DR: Maxwell Waller MD : [birth year] BED: 1 DIS: 07/24/19 STATUS: DIS IN TLOC: SPEC #: [id number] RECD: 07/24/19 STATUS: ANG REQ #: [id number] [place]: 07/24/19- [facility] DR: Maxwell Waller MD ENTERED: 07/24/19 SP TYPE: SURG OTHR DR: DOES_NOT KNOW No Primary or Family Physician Tequila Varghese MD, James E MD Hinh, Peter P MDORDERED: SURG PATH LVL 3 COPIES TO: DOES_NOT KNOW No Primary [place] [address] [facility] [address] [place], [place] [address] Sanjay Adkins MD [address] [facility] [address] [place], [place] [address] Wilfredo Ram MD [address] [facility] [address] [place] [address] [place] [address] [place] [address] [email or web address] HISTOLOGY: TISSUE ID BLK PCS KENNY LEV PROCEDURE DISPOSITION ____ ___ ___ ___ INGUINAL REGION A 1 PROCEDURES: SURG PATH LVL 3 (07/24/19-104) TISSUES: A. INGUINAL REGION, NOS - RIGHT GROIN ABSCESS CAVITY CONTINUED ON NEXT PAGE RUN DATE: 07/27/19 [facility] - LAB PAGE 2 RUN TIME: 1605 Specimen Inquiry RUN USER: INTERFACE SPEC #: [id number] PATIENT: NOHEMY CLANCY #[id number] (Con tinued) CLINICAL HISTORY ABD PAIN, MURAL ABCESS CPT CODES CPT CODE(S): 78756 , , , , , , FINAL DIAGNOSIS Soft tissue, right groin, excision: ABSCESS GROSS DESCRIPTION Right groin abscess cavity. Received in formalin are two irregular fragments of farr-pink soft tissue, 0.4 x 0.3 x 0.2 and 0.9 x 0.7x 0.5 cm. Both fragments are differentially inked, serially sectioned and the cut surface is dense, hill and solid with no focal lesions. The entire specimen submitted as A. ba/nr Grossing performed at [facility] Pathology, [address] [place] [address], [address], [place] [address]. [employer] [place] [place] [employer] Supervisor: Merritt Cole M.D. MICROSCOPIC DESCRIPTION Right groin abscess cavity. Sections demonstrate soft tissue with prominent acute and chronic inflammation. Signed SIGNATURE ON FILE Eric Wilkinson 07/27/19 1605 END OF REPORT BASIC METABOLIC [id number] 06:29:00 Test Item Value Reference Range Interpretation Comments SODIUM (test code = NA) 137 mmol/L 134-147 N POTASSIUM (test code = 4.8 mmol/L 3.4-5.0 N K) CHLORIDE (test code = 107 mmol/L 100-108 N CL) CARBON DIOXIDE (test 25 mmol/L 21-32 N code = CO2) ANION GAP (test code = 5.0 GAP calc 4.0-15.0 N GAP) GLUCOSE (test code = 91 MG/DL 70-110 N GLU) BLOOD UREA NITROGEN 8 MG/DL 7-18 N (test code = BUN) GLOMERULAR FILTRATION >=60 max estimate >60 RATE (test code = GFR) estGFR CREATININE (test code = 1.2 MG/DL 0.8-1.3 N CREAT) CALCIUM (test code = CA) 8.9 MG/DL 8.5-10.1 N CBC W/AUTO [id number] 06:09:00 Test Item Value Reference Range Interpretation Comments WHITE BLOOD CELL (test code = 6.7 K/mm3 3.5-11.0 N WBC) RED BLOOD CELL (test code = RBC) 5.35 M/mm3 4.70-6.10 N HEMOGLOBIN (test code = HGB) 16.0 G/DL 12.3-15.9 H HEMATOCRIT (test code = HCT) 48.9 % 35.8-46.7 H MEAN CELL VOLUME (test code = 91.4 Fl 86.3-98.9 N MCV) MEAN CELL HGB (test code = MCH) 29.9 pg 28.9-34.4 N MEAN CELL HGB CONCETRATION (test 32.7 G/DL 32.1-34.5 N code = MCHC) RED CELL DISTRIBUTION WIDTH (test 12.7 SD 11.5-14.5 N code = RDW) PLATELET COUNT (test code = PLT) 220.0 K/mm3 150-450 N MEAN PLATELET VOLUME (test code = 10.20 fL 7.0-9.6 H MPV) NEUTROPHIL % (test code = NT%) 69.1 % 40-76 N LYMPHOCYTE % (test code = LY%) 18.9 % 20.5-51.1 L MONOCYTE % (test code = MO%) 7.6 % 1.7-9.3 N EOSINOPHIL % (test code = EO%) 4.3 % 0.0-6.0 N BASOPHIL % (test code = BA%) 0.1 % 0.0-2.0 N NEUTROPHIL # (test code = NT#) 4.60 K/mm3 1.8-7.6 N LYMPHOCYTE # (test code = LY#) 1.3 K/mm3 0.6-3.0 N MONOCYTE # (test code = MO#) 0.5 K/mm3 0.2-1.5 N EOSINOPHIL # (test code = EO#) 0.3 K/mm3 0.0-0.4 N BASOPHIL # (test code = BA#) 0.0 K/mm3 0.0-0.2 N MANUAL DIFF REQUIRED (test code = NO DIFF/SCN CRITERIA MDIFF) - US SCROTUM AND [id number] 23:41:00 Name: JULIETH,NOHEMY DUBOISE JR [facility] : 1995 Age/S: 24 / M [address] [address] Unit #: [id number] Loc: [place] [address] Phys: Maxwell Waller MD Acct: [id number] Dis Date: Status: ADM IN PHONE #: [phone] Exam Date: 07/23/20191827 FAX #: Reason: inguinal mass EXAMS: CPT: [id number] US SCROTUM AND CNTS 85424 Examination: Ultrasound scrotum complete Location code: H60 Comparison: Ultrasound and CT scan dated 07/20/2019 Discussion: Clinical history is remarkable foringuinal mass. Right testis measures 3.9 x 1.5 x 2.8 cm and left testis measures 3.7 x 1.7 x 2.3 cm. Both testes are normal in size. Duplex evaluation reveals normal flow inboth testes. Both epididymides are normal in appearance. A very tiny right epididymal cyst is noted. A right-sided inguinal mass is identified measuring 2.0 x 2.7 cm in greatest dimension. This is essentially unchanged in size when allowing for differences in technique when compared to the prior study. No other abnormal masses or fluid collections identified. Impression: 1. Complex right inguinal mass stable when compared to the prior study. 2. Normal ultrasound examination of the scrotum and testes. There is no evidence for testicular torsion. at 2341 Reported and signed by: Mathieu Harris M.D. CC: Maxwell Waller MD Technologist: Gina Ureña Trnscb Date/Time: 07/23/2019 (2341) Anup.VR5 PAGE 1 Signed Report Name: NOHEMY CLANCY JR [facility] : 1995 Age/S: 24 / M [id number] [place] Unit #: [id number] Loc: [place] [address] Phys: Maxwell Waller MD Acct: [id number] Dis Date:Status: ADM IN PHONE #: [phone] Exam Date: 07/23/20192 FAX #: Reason: inguinal mass EXAMS: CPT: [id number] US SCROTUM AND CNTS [id number] <Continued> Orig Print D/T: S: 07/23/2019 (2344) Probe: PAGE 2 Signed Report- USG NDL PLACEMENT (Bxg/Asp)2019-07-23 18:04:00 Name: NOHEMY CLANCY JR [facility] : 1995 Age/S: 24 / M [id number] Unit #: [id number] Loc: [place] [address] Phys: Maxwell Waller MD Acct: [id number] Dis Date: Status: ADM IN PHONE #: [phone] Exam Date: 07/23/2019 1600 FAX #: Reason: RIGHT INGUINAL MASS EXAMS: CPT: [id number] USG NDL PLACEMENT (Bxg/Asp) [id number] EXAMINATION: PERCUTANEOUS ASPIRATION LOCATION: S17. HISTORY: 24-year-old male with right groin pain with recent imaging demonstrating complex cystic region, request is made for sampling. COMPARISON: CT abdomen and US pelvis 07/20/2019. SEDATION: The patient did not require conscious sedation for the procedure. TECHNIQUE: The risks, benefits and alternatives were discussed and informed consent was obtained. Prior to beginning the procedure, [place] Protocol was used to confirm the patient's identity and planned procedure. Maximum sterile barriers including cap, mask, hand hygiene, sterile gloves, sterile gown, large sterile drape and cutaneous antisepsis were used. The skin overlying the fluid collection in the right inguinal region was sterilely prepped, draped and infiltrated with 1% lidocaine. The targeted collection was then accessed with a 22 gauge needle using real- time ultrasound guidance. After few attempts, no fluid could be aspirated .. At this point, patient requested we stopped the procedure due to pain. A sterile dressing was applied. ESTIMATED BLOOD LOSS: Minimal. DISCHARGED TO: Performed at bedside on floor. CONDITION: Stable. FINDINGS: Images from the procedure revealed a complex collection that was located in right inguinal region, as seen on recent imaging. IMPRESSION: No fluid could be aspirated from complex right inguinal collection as above. PAGE 1 Signed Report (CONTINUED) Name: NOHEMY CLANCY JR [facility] : 1995 Age/S: 24 / M [address] [address] Unit #: [id number] Loc: [place] [address] Phys: Maxwell Waller MD Acct: [id number] Dis Date: Status: ADM IN PHONE #: [phone] Exam Date: 07/23/2019 1600FAX #: Reason: RIGHT INGUINAL MASS EXAMS: CPT: [id number] USG NDL PLACEMENT (Bxg/Asp) 60916 <Continued> at 1804 Reported and signed by: Leigh Roque M.D. CC: Maxwell Waller MD Technologist: Awa Heredia Trnalb Date/Time: 07/23/2019 (1803) [email or web address] PAGE 2 Signed Report Name: NOHEMY CLANCY Count includes the [facility] : 1995 Age/S: 24 / M [address] [address] Unit #: [id number] Loc: [place] [address] Phys: Maxwell Waller MD Acct: [id number] Dis Date: Status: ADM IN PHONE #: [phone] Exam Date: 07/23/2019 1600 FAX #: Reason: RIGHT INGUINAL MASS EXAMS: CPT: [id number] USG NDL PLACEMENT (Bxg/Asp) 30847 <Continued> Orig Print D/T: S: 07/23/2019 (1806) Probe: PAGE 3 Signed ReportCBC W/AUTO [id number] 06:31:00 Test Item Value Reference Range Interpretation Comments WHITE BLOOD CELL (test code = 7.0 K/mm3 3.5-11.0 N WBC) RED BLOOD CELL (test code = RBC) 5.02 M/mm3 4.70-6.10 N HEMOGLOBIN (test code = HGB) 15.1 G/DL 12.3-15.9 N HEMATOCRIT (test code = HCT) 45.9 % 35.8-46.7 N MEAN CELL VOLUME (test code = 91.4 Fl 86.3-98.9 N MCV) MEAN CELL HGB (test code = MCH) 30.1 pg 28.9-34.4 N MEAN CELL HGB CONCETRATION (test 32.9 G/DL 32.1-34.5 N code = MCHC) RED CELL DISTRIBUTION WIDTH (test 12.8 SD 11.5-14.5 N code = RDW) PLATELET COUNT (test code = PLT) 203.0 K/mm3 150-450 N MEAN PLATELET VOLUME (test code = 10.50 fL 7.0-9.6 H MPV) NEUTROPHIL % (test code = NT%) 66.0 % 40-76 LYMPHOCYTE % (test code = LY%) 20.3 % 20.5-51.1 L MONOCYTE % (test code = MO%) 9.2 % 1.7-9.3 N EOSINOPHIL % (test code = EO%) 4.4 % 0.0-6.0 N BASOPHIL % (test code = BA%) 0.1 % 0.0-2.0 N NEUTROPHIL # (test code = NT#) 4.63 K/mm3 1.8-7.6 N LYMPHOCYTE # (test code = LY#) 1.4 K/mm3 0.6-3.0 N MONOCYTE # (test code = MO#) 0.7 K/mm3 0.2-1.5 N EOSINOPHIL # (test code = EO#) 0.3 K/mm3 0.0-0.4 N BASOPHIL # (test code = BA#) 0.0 K/mm3 0.0-0.2 N MANUAL DIFF REQUIRED (test code = NO DIFF/SCN CRITERIA MDIFF) BASIC METABOLIC [id number] 06:28:00 Test Item Value Reference Range Interpretation Comments SODIUM (test code = NA) 139 mmol/L 134-147 N POTASSIUM (test code = 4.1 mmol/L 3.4-5.0 N K) CHLORIDE (test code = 107 mmol/L 100-108 N CL) CARBON DIOXIDE (test 30 mmol/L 21-32 N code = CO2) ANION GAP (test code = 2.0 GAP calc 4.0-15.0 L GAP) GLUCOSE (test code = 101 MG/DL 70-110 N GLU) BLOOD UREA NITROGEN 6 MG/DL 7-18 L (test code = BUN) GLOMERULAR FILTRATION >=60 max estimate >60 RATE (test code = GFR) estGFR CREATININE (test code = 1.1 MG/DL 0.8-1.3 N CREAT) CALCIUM (test code = CA) 8.6 MG/DL 8.5-10.1 N - US PELVIC [id number] 15:18:00 Name: NOHEMY CLANCY JR [facility] : 1995 Age/S: 24 / M [address] [address] Unit #: [id number] Loc: [place] [address] Phys: Tequila Varghese MD Acct: [id number] Dis Date: Status: ADM IN PHONE #: [phone] Exam Date: 07/22/2019 1453 FAX #: Reason: Persistent right groin pain, reassess lesion EXAMS: CPT: [id number] US PELVIC COMPLETE 31888 Location code: B2 Ultrasound right groin pain Indication: Persistent right groin pain, reassess lesion Comparison: 07/20/2019 Technique: Grayscale and color flow images were obtained. Findings: Complex structure in the right inguinal region appears primarily cystic and measures 1.2 x 1.3 x 2.3 cm. Impression: 1. Complex right inguinal cystic structure measures 1.2 x 1.3 x 2.3 cm, little changed since prior exam of 07/20/2019. at 1518 Reported and signed by: Ricardo Solomon M.D. CC: Tequila Brantley MD; Maxwell Waller MD Technologist: Gina Ureña [facility] Date/Time: 07/22/2019 (1518) [email or web address] PAGE 1 Signed Report Name: NOHEMY CLANCY JR [facility] : 1995 Age/S: 24 / M [address] [address] Unit #: [id number] Loc: [place] [address] Phys: Tequila Varghese MD Acct: [id number] Dis Date: Status: ADM IN PHONE #: [phone] Exam Date: 07/22/2019 3641 FAX #: Reason: Persistent right groin pain, reassess lesion EXAMS: CPT: [id number] US PELVIC COMPLETE 06537 <Continued> Orig Print D/T: S: 07/22/2019 (1521) Probe: PAGE 2 Signed ReportCBC W/AUTO [id number] 07:09:00 Test Item Value Reference Range Interpretation Comments WHITE BLOOD CELL (test code = 5.6 K/mm3 3.5-11.0 N WBC) RED BLOOD CELL (test code = RBC) 4.97 M/mm3 4.70-6.10 N HEMOGLOBIN (test code = HGB) 14.9 G/DL 12.3-15.9 N HEMATOCRIT (test code = HCT) 45.9 % 35.8-46.7 N MEAN CELL VOLUME (test code = 92.4 Fl 86.3-98.9 N MCV) MEAN CELL HGB (test code = MCH) 30.0 pg 28.9-34.4 N MEAN CELL HGB CONCETRATION (test 32.5 G/DL 32.1-34.5 N code = MCHC) RED CELL DISTRIBUTION WIDTH (test 13.0 SD 11.5-14.5 N code = RDW) PLATELET COUNT (test code = PLT) 199.0 K/mm3 150-450 N MEAN PLATELET VOLUME (test code = 11.00 fL 7.0-9.6 H MPV) NEUTROPHIL % (test code = NT%) 58.4 % 40-76 LYMPHOCYTE % (test code = LY%) 26.1 % 20.5-51.1 N MONOCYTE % (test code = MO%) 9.4 % 1.7-9.3 H EOSINOPHIL % (test code = EO%) 5.9 % 0.0-6.0 N BASOPHIL % (test code = BA%) 0.2 % 0.0-2.0 N NEUTROPHIL # (test code = NT#) 3.25 K/mm3 1.8-7.6 N LYMPHOCYTE # (test code = LY#) 1.5 K/mm3 0.6-3.0 N MONOCYTE # (test code = MO#) 0.5 K/mm3 0.2-1.5 N EOSINOPHIL # (test code = EO#) 0.3 K/mm3 0.0-0.4 N BASOPHIL # (test code = BA#) 0.0 K/mm3 0.0-0.2 N MANUAL DIFF REQUIRED (test code = NO DIFF/SCN CRITERIA MDIFF) BASIC METABOLIC [id number] 06:39:00 Test Item Value Reference Range Interpretation Comments SODIUM (test code = NA) 140 mmol/L 134-147 N POTASSIUM (test code = 4.1 mmol/L 3.4-5.0 N K) CHLORIDE (test code = 106 mmol/L 100-108 N CL) CARBON DIOXIDE (test 30 mmol/L 21-32 N code = CO2) ANION GAP (test code = 4.0 GAP calc 4.0-15.0 N GAP) GLUCOSE (test code = 104 MG/DL 70-110 N GLU) BLOOD UREA NITROGEN 6 MG/DL 7-18 L (test code = BUN) GLOMERULAR FILTRATION >=60 max estimate >60 RATE (test code = GFR) estGFR CREATININE (test code = 1.1 MG/DL 0.8-1.3 N CREAT) CALCIUM (test code = CA) 8.6 MG/DL 8.5-10.1 N BASIC METABOLIC [id number] 06:28:00 Test Item Value Reference Range Interpretation Comments SODIUM (test code = NA) 139 mmol/L 134-147 N POTASSIUM (test code = 3.9 mmol/L 3.4-5.0 N K) CHLORIDE (test code = 107 mmol/L 100-108 N CL) CARBON DIOXIDE (test 29 mmol/L 21-32 N code = CO2) ANION GAP (test code = 3.0 GAP calc 4.0-15.0 L GAP) GLUCOSE (test code = 113 MG/DL 70-110 H GLU) BLOOD UREA NITROGEN 7 MG/DL 7-18 N (test code = BUN) GLOMERULAR FILTRATION >=60 max estimate >60 RATE (test code = GFR) estGFR CREATININE (test code = 1.2 MG/DL 0.8-1.3 N CREAT) CALCIUM (test code = CA) 8.4 MG/DL 8.5-10.1 L CBC W/AUTO [id number] 06:23:00 Test Item Value Reference Range Interpretation Comments WHITE BLOOD CELL (test code = 8.2 K/mm3 3.5-11.0 N WBC) RED BLOOD CELL (test code = RBC) 4.72 M/mm3 4.70-6.10 N HEMOGLOBIN (test code = HGB) 14.4 G/DL 12.3-15.9 N HEMATOCRIT (test code = HCT) 42.9 % 35.8-46.7 N MEAN CELL VOLUME (test code = 90.9 Fl 86.3-98.9 N MCV) MEAN CELL HGB (test code = MCH) 30.5 pg 28.9-34.4 N MEAN CELL HGB CONCETRATION (test 33.6 G/DL 32.1-34.5 N code = MCHC) RED CELL DISTRIBUTION WIDTH (test 13.0 SD 11.5-14.5 N code = RDW) PLATELET COUNT (test code = PLT) 194.0 K/mm3 150-450 N MEAN PLATELET VOLUME (test code = 10.70 fL 7.0-9.6 H MPV) NEUTROPHIL % (test code = NT%) 74.5 % 40-76 LYMPHOCYTE % (test code = LY%) 15.0 % 20.5-51.1 L MONOCYTE % (test code = MO%) 6.6 % 1.7-9.3 N EOSINOPHIL % (test code = EO%) 3.8 % 0.0-6.0 N BASOPHIL % (test code = BA%) 0.1 % 0.0-2.0 N NEUTROPHIL # (test code = NT#) 6.09 K/mm3 1.8-7.6 N LYMPHOCYTE # (test code = LY#) 1.2 K/mm3 0.6-3.0 N MONOCYTE # (test code = MO#) 0.5 K/mm3 0.2-1.5 N EOSINOPHIL # (test code = EO#) 0.3 K/mm3 0.0-0.4 N BASOPHIL # (test code = BA#) 0.0 K/mm3 0.0-0.2 N MANUAL DIFF REQUIRED (test code = NO DIFF/SCN CRITERIA MDIFF) - CT PELVIS W/O [id number] 07:16:00 Name: NOHEMY CLANCY Count includes the [facility] : 1995 Age/S: 24 / M [address] [address] Unit #: [id number] Loc: [place] [address] Phys: Fredrick Ryan MD Acct: [id number] Dis Date: Status: REG ER PHONE #: [phone] Exam Date: 07/20/2019 0707 FAX #: Reason: right in guinal pain EXAMS: CPT: [id number] CT PELVIS W/O CONTRAST 84088 EXAM: - CTPELVIS W/O CONTRAST LOCATION: C3 HISTORY: right inguinal pain COMPARISON: Same day CT abdomen pelvis, pelvic ultrasound TECHNIQUE: Noncontrast CT images of the pelvis with multiplanar reformats. This exam was performed according to our departmental dose-optimization program, which includes automated exposure control, adjustmentof the mA and/or kV according to patient size and/or use of iterative reconstruction technique. FINDINGS: Bones: No acute osseous findings. Soft tissues:Ill-defined soft tissue density identified in the right inguinal canal. IMPRESSION: Ill-defined soft tissue density with stranding in the right inguinal canal may represent vastitis or phlegmon. at 0716 Reported and signedby: CHAN VARELA M.D. CC: Technologist:RT Thomas (R)(CT) CTDI: DLP: Trnscb Date/Time: 07/20/2019 (715) [email or web address] Orig Print D/T: S: 07/20/2019 (0799) PAGE 1 Signed Report- US PELVIC [id number] 05:26:00 Name: NOHEMY CLANCY Count includes the [facility] : 1995 Age/S: 24 / M [address] [address] Unit #: [id number] Loc: [place] [address] Phys: Fredrick Ryan MD Acct: [id number] Dis Date: Status: [facility] ER PHONE #: [phone] Exam Date: 07/20/2019 0412 FAX #: Reason: right inguinal lesion EXAMS: CPT: [id number] US PELVIC COMPLETE 31829 LOCATION: Q15 HISTORY: 24-year-old male who presents with a right inguinal lesion seen on recent CT imaging of the abdomen pelvis. The patient presented with right lower quadrant pain of approximately 4 days duration. COMMENT: Sonographic imaging of the patient's right inguinal region was performed. Grayscale and color-flow imaging modalities were utilized. A pair of cine images sets were included. The study is compared to the CT examination obtained earlier this morning along with prior CTs of the abdomen pelvis dated March 18, 2014, and January 03, 2013. The ultrasound study demonstrates a complex echotexture collection in the inguinal region measuring approximately 27 x 23 x 9 mm. The color flow study demonstrates no increased flow vascularity surrounding the lesion, indicating that this is not likely an abscess. The review the CT study of the abdomen does not convincingly demonstrated a direct communication between the cecal tip and this is collection within the inguinal canal. Therefore an Amyand hernia (incarcerated appendix within the inguinalcanal) is not considered likely, but cannot be completely excluded. More likely this represents a focal area of vasitis. A repeat CT study of the pelvis only obtained with oral contrast might be of benefit to attempt to identify the patient's appendix. Theexamination as well as the clinical findings were discussed with Dr. Ryan at approximately 5:20 a.m. IMPRESSION: A nonspecific variable echotexture collectionis seen in the inguinal canal, most likely corresponding to the recent CT findings. Differential considerations would include most likely focus of vasitis, or less likely an Amyand hernia. PAGE 1 Signed Report (CONTINUED) Name: JULIETHNOHEMY JR [facility] : 1995 Age/S: 24 / M [address] [address] Unit #: [id number] Loc: [place] [address] Phys: Fredrick Ryan MD Acct: [id number] Dis Date: Status: REG ER PHONE #: [phone] Exam Date: 07/20/2019 0419 FAX #: Reason: right inguinal lesion EXAMS: CPT: [id number] US PELVIC COMPLETE 06416 <Continued> at 0526 Reported and signed by: Rowdy Herrmann M.D. CC: Technologist: Florence Nair RDMS Trnscb Date/Time: 07/20/2019 (05) [email or web address] PAGE 2 Signed Report Name: CATHY CLANCYHAYLIE LÓPEZKaila [facility] : 1995 Age/S: 24 / M [address] [address] Unit #: [id number] Loc: [place] [address] Phys: rFedrick Ryan MD Acct: [id number] Dis Date: Status: REG ER PHONE #: [phone] Exam Date:07/20/20199 FAX #: Reason: right inguinal lesion EXAMS: CPT: [id number] US PELVIC COMPLETE [address]4633 <Continued> Orig Print D/T: S: 07/20/2019 (0529) Probe: PAGE 3 Signed Report- CT ABD PELVIS [id number] 03:16:00 Name: NOHEMY CLANCY JR [facility] : 1995 Age/S: 24 / M [address] [address] Unit #: [id number] Loc: [place] [address] Phys: Fredrick Ryan MD Acct: [id number] Dis Date: Status: REG ER PHONE #: [phone] Exam Date: 07/20/2019220 FAX #: Reason: RLQ pain EXAMS: CPT: [id number] CT ABD PELVIS W/CONT 12416 AFTER HOURSSERVICE ON: 07/20/2019 3:[address] Scan of the Abdomen and Pelvis With Contrast Location Code M12 History: RLQ pain Technique: Axial and reconstructed coronal scans were performed on a helical scanner post IV contrast. One or more of the following dose reduction techniques were used: Automated exposure control, adjustment of the mA and/or kV according to patient size, and/or utilization of iterative reconstruction technique. Findings: LIVER: No significant findings. GALLBLADDER/BILIARY: No significant findings. PANCREAS: No significant findings. SPLEEN: No significant findings. ADRENALS: No significant findings. KIDNEYS: No hydronephrosis. BLADDER: No significant findings. GASTROINTESTINAL: The appendix is not visualized. Small bowel loops and colon are within normal limits. OTHER: Mild atelectatic changes noted in the left lung base. In the proximal right internal canal, there is a soft tissue density with mild surrounding stranding. The density is very ill-defined, measuring approximately 2 cm just lateral to the rectus musculature. IMPRESSION: There are ill-defined approximately 2 cm soft tissue intensity in the proximal right inguinal canal with mild surrounding stranding. The lesion is very nonspecific and may be consistent with a small abscess, hematoma or solid mass. This can be further assessed with ultrasound. Nonvisualization of the appendix.. PAGE 1 Signed Report (CONTINUED) Name: NOHEMY CLANCY JR [facility] : 1995 Age/S: 24 / M [address] [address] Unit #: [id number] Loc: [place] [address] Phys: Fredrick Ryan MD Acct: [id number] Dis Date: Status: REG ER PHONE #: [phone] Exam Date: 07/20/2019 0221 FAX #: Reason: RLQ pain EXAMS: CPT: [id number] CT ABD PELVIS W/CONT 95644 <Continued> at 0316 Reported and signed by:Emerita Fitzgerald M.D. CC:Technologist:Carla Carrera RT(R); Tae Rueda CTDI: DLP: Trnscb Date/Time: 07/20/2019 (315) [email or web address] Orig Print D/T: S: 07/20/2019 (318) PAGE 2 Signed ReportCBC W/AUTO DIFF 2019-07-20 02:01:00 Test Item Value Reference Range Interpretation Comments WHITE BLOOD CELL (test code = 7.4 K/mm3 3.5-11.0 N WBC) RED BLOOD CELL (test code = RBC) 5.39 M/mm3 4.70-6.10 N HEMOGLOBIN (test code = HGB) 16.4 G/DL 12.3-15.9 H HEMATOCRIT (test code = HCT) 48.2 % 35.8-46.7 H MEAN CELL VOLUME (test code = 89.4 Fl 86.3-98.9 N MCV) MEAN CELL HGB (test code = MCH) 30.4 pg 28.9-34.4 N MEAN CELL HGB CONCETRATION (test 34.0 G/DL 32.1-34.5 N code = MCHC) RED CELL DISTRIBUTION WIDTH (test 12.8 SD 11.5-14.5 N code = RDW) PLATELET COUNT (test code = PLT) 211.0 K/mm3 150-450 N MEAN PLATELET VOLUME (test code = 10.40 fL 7.0-9.6 H MPV) NEUTROPHIL % (test code = NT%) 63.6 % 40-76 N LYMPHOCYTE % (test code = LY%) 25.2 % 20.5-51.1 N MONOCYTE % (test code = MO%) 6.7 % 1.7-9.3 N EOSINOPHIL % (test code = EO%) 4.2 % 0.0-6.0 N BASOPHIL % (test code = BA%) 0.3 % 0.0-2.0 N NEUTROPHIL # (test code = NT#) 4.73 K/mm3 1.8-7.6 N LYMPHOCYTE # (test code = LY#) 1.9 K/mm3 0.6-3.0 N MONOCYTE # (test code = MO#) 0.5 K/mm3 0.2-1.5 N EOSINOPHIL # (test code = EO#) 0.3 K/mm3 0.0-0.4 N BASOPHIL # (test code = BA#) 0.0 K/mm3 0.0-0.2 N MANUAL DIFF REQUIRED (test code = NO DIFF/SCN CRITERIA MDIFF) BASIC METABOLIC [id number] 02:01:00 Test Item Value Reference Range Interpretation Comments SODIUM (test code = NA) 139 mmol/L 134-147 N POTASSIUM (test code = 3.7 mmol/L 3.4-5.0 N K) CHLORIDE (test code = 104 mmol/L 100-108 N CL) CARBON DIOXIDE (test 32 mmol/L 21-32 N code = CO2) ANION GAP (test code = 3.0 GAP calc 4.0-15.0 L GAP) GLUCOSE (test code = 105 MG/DL 70-110 N GLU) BLOOD UREA NITROGEN 9 MG/DL 7-18 N (test code = BUN) GLOMERULAR FILTRATION >=60 max estimate >60 RATE (test code = GFR) estGFR CREATININE (test code = 1.1 MG/DL 0.8-1.3 N CREAT) CALCIUM (test code = CA) 8.9 MG/DL 8.5-10.1 N HEPATIC FUNCTION [id number] 02:01:00 Test Item Value Reference Range Interpretation Comments TOTAL PROTEIN (test code = PROT) 8.2 G/DL 6.4-8.2 N ALBUMIN (test code = ALB) 3.6 G/DL 3.4-5.0 N BILIRUBIN TOTAL (test code = BILT) 0.60 MG/DL 0.2-1.2 N BILIRUBIN DIRECT (test code = 0.10 MG/DL 0.00-0.30 N BILD) BILIRUBIN INDIRECT (test code = 0.50 MG/DL 0.2-1.2 N BILIND) SGOT/AST (test code = AST) 30 Unit/L 15-37 N SGPT/ALT (test code = ALT) 40 Unit/L 12-78 N ALKALINE PHOSPHATASE TOTAL (test 78 Unit/L 50-136 N code = ALKP) [id number] 02:01:00 Test Item Value Reference Range Interpretation Comments LIPASE (test code = LIP) 41 Unit/L 114-286 L UA RFLX MICR CULT IF [id number] 01:40:00 Test Item Value Reference Range Interpretation Comments UA COLOR (test code = COLU) YELLOW discript YEL/STRAW UA APPEARANCE (test code = CLEAR discript CLEAR APPU) UA GLUCOSE DIPSTICK (test NEGATIVE mg/dL NEG code = DGLUU) UA BILIRUBIN DIPSTICK (test NEGATIVE mg/dL NEG code = BILU) UA KETONE DIPSTICK (test NEGATIVE mg/dL NEG code = KETU) UA SPECIFIC GRAVITY (test >=1.030 SG 1.005-1.030 A code = SGU) UA BLOOD DIPSTICK (test NEGATIVE mg/DL NEG code = CARROLL) UA PH DIPSTICK (test code = 6.0 pH UNITS 5.0-7.0 VANIA) UA PROTEIN DIPSTICK (test NEGATIVE mg/dL NEG code = PROU) UA UROBILINIOGEN DIPSTICK 0.2 mg/dL <2.0 (test code = URO) UA NITRITE DIPSTICK (test NEGATIVE SCREEN NEG code = SILVANO) UA LEUKOCYTE ESTERASE NEGATIVE Leuk/mcL NEGATIVE DIPSTICK (test code = LEUU) UA CULTURE NEEDED? (test Criteria Culture CHK code = UACULT) SOURCE OF URINE: CLEAN CATCHIndication for culture: Suprapubic PainUA RFLX MICR CULT IF [id number] 01:40:00 Test Item Value Reference Range Interpretation Comments UA COLOR (test code = YELLOW discript YEL/STRAW COLU) UA APPEARANCE (test code CLEAR discript CLEAR = APPU) UA GLUCOSE DIPSTICK (test NEGATIVE mg/dL NEG code = DGLUU) UA BILIRUBIN DIPSTICK NEGATIVE mg/dL NEG (test code = BILU) UA KETONE DIPSTICK (test NEGATIVE mg/dL NEG code = KETU) UA SPECIFIC GRAVITY (test >=1.030 SG 1.005-1.030 A code = SGU) UA BLOOD DIPSTICK (test NEGATIVE mg/DL NEG code = CARROLL) UA PH DIPSTICK (test code 6.0 pH UNITS 5.0-7.0 = VANIA) UA PROTEIN DIPSTICK (test NEGATIVE mg/dL NEG code = PROU) UA UROBILINIOGEN DIPSTICK 0.2 mg/dL <2.0 (test code = URO) UA NITRITE DIPSTICK (test NEGATIVE SCREEN NEG code = SILVANO) UA LEUKOCYTE ESTERASE NEGATIVE Leuk/mcL NEGATIVE DIPSTICK (test code = LEUU) UA CULTURE NEEDED? (test NO, WBC<10 Criteria Culture CHK code = UACULT) SOURCE OF URINE: CLEAN CATCHIndication for culture: Suprapubic Pain- NM MYOCRD SPECT R/S [id number] 14:31:00 FAX: Maxwell Waller MD [phone] Camps: PM St: ADM FAX: Kirby Giles [phone] Name: NOHEMY CLANCY Count includes the [facility] : 1995 Age/S: 23/M [address] [facility] Unit #: [id number] Loc: [address] [place] [address] Phys: Kirby Carter MD Acct: [id number] Dis Date: Status: ADM IN PHONE #: [phone] Exam Date: 12/23/2018 1332 FAX #: Reason: CHEST PAIN EXAMS: CPT: [id number] NM MYOCRD SPECT R/S MULT [id number] Location of dictation: B2 HISTORY:CHEST PAIN TECHNIQUE: 10.0 mCi Tc-99m sestamibi was injected IV at rest. Non-gated SPECT imaging is performed. The patient is stressed with Lexiscan 0.4 mg/ 5 ml. At peak stress, 30 mCi Tc-99m sestamibi was injected IV. Gated SPECT imaging and post-processing are accomplished. FINDINGS: Comparison is made to recent chest CT which was unremarkable. The left ventricle is normal in size. Homogeneous myocardial perfusion is observed. No significant stress defects suspicious for ischemiaor infarct are identified. The computed calculated LVEF is 61 %. Concentric wallmotion is identified. No segmental wall motion abnormality is seen. Quantitative analysis is within normal limits. IMPRESSION: 1. Negative for evidence of significant myocardial ischemia or infarct. 2. Normal left ventricular ejection fraction and wa ll motion. at 1434 Reported and signed by: Claudette Rehman M.D. CC: Maxwell Waller MD; Kirby Carter MDTechnologist: KELSIE Galvin Transcribed Date/Time/By: 12/23/2018 (2288) :[email or web address] Orig Print D/T: S: 12/23/2018 (6651) PAGE 1 Signed Report- NM MYOCRD SPECT R/S MULT 2018-12-23 14:31:00 FAX: Maxwell Waller MD [phone] Camps: PM St: DIS FAX: Kirby Giles [phone] Name: NOHEMY CLANCY Count includes the [facility] : 1995 Age/S: 23/M [address] [address] Unit #: [id number] Loc: [address] [place] [address] Phys: Kirby Carter MD Acct: [id number] Dis Date: [id number] Status: DIS IN PHONE #: [phone] Exam Date: 12/23/2018 1332 FAX #: Reason: CHEST PAIN EXAMS: CPT: [id number] NM MYOCRD SPECT R/S MULT [id number] Location of dictation: B2 HISTORY:CHEST PAIN TECHNIQUE: 10.0 mCi Tc-99m sestamibi was injected IV at rest. Non-gated SPECT imaging is performed. The patient is stressed with Lexiscan 0.4 mg/ 5 ml. At peak stress, 30 mCi Tc-99m sestamibi was injected IV. Gated SPECT imaging and post-processing are accomplished. FINDINGS: Comparison is made to recent chest CT which was unremarkable. The left ventricle is normal in size. Homogeneous myocardial perfusion is observed. No significant stress defects suspicious for ischemiaor infarct are identified. The computed calculated LVEF is 61 %. Concentric wallmotion is identified. No segmental wall motion abnormality is seen. Quantitative analysis is within normal limits. IMPRESSION: 1. Negative for evidence of significant myocardial ischemia or infarct. 2. Normal left ventricular ejection fraction and wa ll motion. at 1439 Reported and signed by: Claudette Rehman M.D. CC: Maxwell Waller MD; Kirby Carter MDTechnologist: MOON GalvinMT Transcribed Date/Time/By: 12/23/2018 (2283) :Anup.PXC Orig Print D/T: S: 12/23/2018 (0145) PAGE 1 Signed Report- NM MYOCRD SPECT R/S MULT 2018-12-23 14:31:00 FAX: Maxwell Waller MD [phone] Camps: PM St: DIS FAX: Kirby Giles [phone] Name: NOHEMY CLANCY Count includes the [facility] : 1995 Age/S: 23/M [address] [place] Unit #: [id number] Loc: [address] [place] [phone] Phys: Kirby Carter MD Acct: [id number] Dis Date: [id number] Status: DIS IN PHONE #: [phone] Exam Date: 12/23/2018 1332 FAX #: Reason: CHEST PAIN EXAMS: CPT: [id number] NM MYOCRD SPECT R/S MULT [id number] Location of dictation: B2 HISTORY:CHEST PAIN TECHNIQUE: 10.0 mCi Tc-99m sestamibi was injected IV at rest. Non-gated SPECT imaging is performed. The patient is stressed with Lexiscan 0.4 mg/ 5 ml. At peak stress, 30 mCi Tc-99m sestamibi was injected IV. Gated SPECT imaging and post-processing are accomplished. FINDINGS: Comparison is made to recent chest CT which was unremarkable. The left ventricle is normal in size. Homogeneous myocardial perfusion is observed. No significant stress defects suspicious for ischemiaor infarct are identified. The computed calculated LVEF is 61 %. Concentric wallmotion is identified. No segmental wall motion abnormality is seen. Quantitative analysis is within normal limits. IMPRESSION: 1. Negative for evidence of significant myocardial ischemia or infarct. 2. Normal left ventricular ejection fraction and wa ll motion. at 1437 Reported and signed by: Claudette Rehman M.D. CC: Maxwell Waller MD; Kirby Carter MDTechnologist: Kristy Babb [facility] Transcribed Date/Time/By: 12/23/2018 (9330) :PatriciaR.PXC Orig Print D/T: S: 12/23/2018 (6277) PAGE 1 Signed Report- NM MYOCRD SPECT R/S MULT 2018-12-23 14:31:00 FAX: Maxwell Waller MD [phone] Camps: PM St: DIS FAX: Kirby Giles [phone] Name: NOHEMY CLANCY JR [facility] Becky : 1995 Age/S: 23/M [address] [address] Unit #: [id number] Loc: [place] [address] Phys: Kirby Carter MD Acct: [id number] Dis Date: [id number] Status: DIS IN PHONE #: [phone] Exam Date: 12/23/2018 1332 FAX #: Reason: CHEST PAIN EXAMS: CPT: [id number] NM MYOCRD SPECT R/S MULT 34352 Location of dictation: B2 HISTORY:CHEST PAIN TECHNIQUE: 10.0 mCi Tc-99m sestamibi was injected IV at rest. Non-gated SPECT imaging is performed. The patient is stressed with Lexiscan 0.4 mg/ 5 ml. At peak stress, 30 mCi Tc-99m sestamibi was injected IV. Gated SPECT imaging and post-processing are accomplished. FINDINGS: Comparison is made to recent chest CT which was unremarkable. The left ventricle is normal in size. Homogeneous myocardial perfusion is observed. No significant stress defects suspicious for ischemiaor infarct are identified. The computed calculated LVEF is 61 %. Concentric wallmotion is identified. No segmental wall motion abnormality is seen. Quantitative analysis is within normal limits. IMPRESSION: 1. Negative for evidence of significant myocardial ischemia or infarct. 2. Normal left ventricular ejection fraction and wa ll motion. at 1431 Reported and signed by: Claudette Rehman M.D. CC: Maxwell Waller MD; Kirby Carter MDTechnologist: KELSIE Galvin Transcribed Date/Time/By: 12/23/2018 (5357) :Anup.PXC Orig Print D/T: S: 12/23/2018 (3557) PAGE 1 Signed ReportBASIC METABOLIC [id number] 01:46:00 Test Item Value Reference Range Interpretation Comments SODIUM (test code = NA) 141 mmol/L 134-147 N POTASSIUM (test code = 4.1 mmol/L 3.4-5.0 N K) CHLORIDE (test code = 105 mmol/L 100-108 N CL) CARBON DIOXIDE (test 29 mmol/L 21-32 N code = CO2) ANION GAP (test code = 7.0 GAP calc 4.0-15.0 N GAP) GLUCOSE (test code = 102 MG/DL 70-110 N GLU) BLOOD UREA NITROGEN 9 MG/DL 7-18 N (test code = BUN) GLOMERULAR FILTRATION >=60 max estimate >60 RATE (test code = GFR) estGFR CREATININE (test code = 1.0 MG/DL 0.8-1.3 N CREAT) CALCIUM (test code = CA) 8.6 MG/DL 8.5-10.1 N T4 [id number] 01:46:00 Test Item Value Reference Range Interpretation Comments T4 FREE (test code = T4F) 0.69 NG/DL 0.89-1.76 L THYROID STIMULATING [id number] 01:46:00 Test Item Value Reference Range Interpretation Comments THYROID STIMULATING HORMONE 0.680 mcIU/ML 0.340-4.820 N (test code = TSH) CPK-MB [id number] 01:41:00 Test Item Value Reference Range Interpretation Comments CREATINE KINASE (CK) (test code = 149 Unit/L 26-192 N CK) CKMB (test code = CKMBT) 1.1 NG/ML 0.0-4.9 N RELATIVE % INDEX (test code = 0.7 % 0.0-2.5 N REL%) Completed by Nursing: [id number] 01:41:00 Test Item Value Reference Range Interpretation Comments TROPONIN-I (test < 0.015 NG/ML 0.000-0.045 N Negative: </= 0.045 code = TROPI) Positive: >/= 0.046 Correlation wit h serial results, other cardiac markers, and cl inical findings is nec essary to determine the c linical significance of this result. Quantit ative results using d ifferent methodologies s hould not be compared to one another as nume rical results may inocencio yby method. Completed by Nursing: MANE W/AUTO [id number] 01:33:00 Test Item Value Reference Range Interpretation Comments WHITE BLOOD CELL (test code = 5.4 K/mm3 3.5-11.0 N WBC) RED BLOOD CELL (test code = RBC) 5.25 M/mm3 4.70-6.10 N HEMOGLOBIN (test code = HGB) 16.0 G/DL 12.3-15.9 H HEMATOCRIT (test code = HCT) 47.0 % 35.8-46.7 H MEAN CELL VOLUME (test code = 89.5 Fl 86.3-98.9 N MCV) MEAN CELL HGB (test code = MCH) 30.5 pg 28.9-34.4 N MEAN CELL HGB CONCETRATION (test 34.0 G/DL 32.1-34.5 N code = MCHC) RED CELL DISTRIBUTION WIDTH (test 12.6 SD 11.5-14.5 N code = RDW) PLATELET COUNT (test code = PLT) 198.0 K/mm3 150-450 N MEAN PLATELET VOLUME (test code = 10.50 fL 7.0-9.6 H MPV) NEUTROPHIL % (test code = NT%) 67.1 % 40-76 N LYMPHOCYTE % (test code = LY%) 25.2 % 20.5-51.1 N MONOCYTE % (test code = MO%) 6.4 % 1.7-9.3 N EOSINOPHIL % (test code = EO%) 1.1 % 0.0-6.0 N BASOPHIL % (test code = BA%) 0.2 % 0.0-2.0 N NEUTROPHIL # (test code = NT#) 3.64 K/mm3 1.8-7.6 N LYMPHOCYTE # (test code = LY#) 1.4 K/mm3 0.6-3.0 N MONOCYTE # (test code = MO#) 0.4 K/mm3 0.2-1.5 N EOSINOPHIL # (test code = EO#) 0.1 K/mm3 0.0-0.4 N BASOPHIL # (test code = BA#) 0.0 K/mm3 0.0-0.2 N MANUAL DIFF REQUIRED (test code = NO DIFF/SCN CRITERIA MDIFF) [id number] 04:29:00 Test Item Value Reference Range Interpretation Comments TROPONIN-I (test < 0.015 NG/ML 0.000-0.045 N Negative: </= 0.045 code = TROPI) Positive: >/= 0.046 Correlation wit h serial results, other cardiac markers, and cl inical findings is nec essary to determine the c linical significance of this result. Quantit ative results using d ifferent methodologies s hould not be compared to one another as nume rical results may inocencio yby method. Completed by Nursing: NOBASIC METABOLIC [id number] 04:22:00 Test Item Value Reference Range Interpretation Comments SODIUM (test code = NA) 139 mmol/L 134-147 N POTASSIUM (test code = 3.6 mmol/L 3.4-5.0 N K) CHLORIDE (test code = 104 mmol/L 100-108 N CL) CARBON DIOXIDE (test 29 mmol/L 21-32 N code = CO2) ANION GAP (test code = 6.0 GAP calc 4.0-15.0 N GAP) GLUCOSE (test code = 128 MG/DL 70-110 H GLU) BLOOD UREA NITROGEN 13 MG/DL 7-18 N (test code = BUN) GLOMERULAR FILTRATION >=60 max estimate >60 RATE (test code = GFR) estGFR CREATININE (test code = 0.9 MG/DL 0.8-1.3 N CREAT) CALCIUM (test code = CA) 8.5 MG/DL 8.5-10.1 N CBC W/AUTO [id number] 04:10:00 Test Item Value Reference Range Interpretation Comments WHITE BLOOD CELL (test code = 5.9 K/mm3 3.5-11.0 N WBC) RED BLOOD CELL (test code = RBC) 5.31 M/mm3 4.70-6.10 N HEMOGLOBIN (test code = HGB) 16.3 G/DL 12.3-15.9 H HEMATOCRIT (test code = HCT) 46.4 % 35.8-46.7 N MEAN CELL VOLUME (test code = 87.4 Fl 86.3-98.9 N MCV) MEAN CELL HGB (test code = MCH) 30.7 pg 28.9-34.4 N MEAN CELL HGB CONCETRATION (test 35.1 G/DL 32.1-34.5 H code = MCHC) RED CELL DISTRIBUTION WIDTH (test 12.3 SD 11.5-14.5 N code = RDW) PLATELET COUNT (test code = PLT) 194.0 K/mm3 150-450 N MEAN PLATELET VOLUME (test code = 10.40 fL 7.0-9.6 H MPV) NEUTROPHIL % (test code = NT%) 62.4 % 40-76 N LYMPHOCYTE % (test code = LY%) 30.3 % 20.5-51.1 N MONOCYTE % (test code = MO%) 5.1 % 1.7-9.3 N EOSINOPHIL % (test code = EO%) 1.9 % 0.0-6.0 N BASOPHIL % (test code = BA%) 0.3 % 0.0-2.0 N NEUTROPHIL # (test code = NT#) 3.67 K/mm3 1.8-7.6 N LYMPHOCYTE # (test code = LY#) 1.8 K/mm3 0.6-3.0 N MONOCYTE # (test code = MO#) 0.3 K/mm3 0.2-1.5 N EOSINOPHIL # (test code = EO#) 0.1 K/mm3 0.0-0.4 N BASOPHIL # (test code = BA#) 0.0 K/mm3 0.0-0.2 N MANUAL DIFF REQUIRED (test code = NO DIFF/SCN CRITERIA MDIFF) [id number] 00:43:00 Test Item Value Reference Range Interpretation Comments TROPONIN-I (test < 0.015 NG/ML 0.000-0.045 N Negative: </= 0.045 code = TROPI) Positive: >/= 0.046 Correlation wit h serial results, other cardiac markers, and cl inical findings is nec essary to determine the c linical significance of this result. Quantit ative results using d ifferent methodologies s hould not be compared to one another as nume rical results may inocencio yby method. Completed by Nursing: NODRUGS OF ABUSE SCREEN [id number] 22:22:00 Test Item Value Reference Range Interpretation Comments URN COCAINE (test code = NEGATIVE SCcutoff <300 NG/ML COCAURN) URN CANNABINOIDS (test code NEGATIVE SCcutoff <50 NG/ML = CANNABURN) URN AMPHETAMINE (test code NEGATIVE SCcutoff <1000 NG/ML = AMPHETURN) URN BARBITURATE (test code NEGATIVE SCcutoff <200 NG/ML = BARBITURN) URN BENZODIAZEPINE (test NEGATIVE SCcutoff <200 NG/ML code = BENZOURN) URN OPIATES (test code = NEGATIVE SCcutoff <2000 NG/ML OPIATURN) URN PHENCYCLIDINE (PCP) NEGATIVE SCcutoff <25 NG/ML (test code = PHENCURN) URN METHADONE (test code = NEGATIVE SCcutoff <300 NG/ML METHAURN) - CT CHEST W/[id number] 21:58:00 [facility] 1995 Age/S: 23 / M [address] Unit #: [id number] Loc: [place] [address] Phys: Hari Rae MD Acct: [id number] Dis Date: Status: REG ER PHONE #: [phone] Exam Date: 12/21/20182124 FAX #: Reason: rule out PE EXAMS: CPT: [id number] CT CHEST W/CONTRAST 91548 CT OF THE CHEST WITH CONTRAST LOCATION: R16 CLINICAL HISTORY: Chest pain. History of PE. COMPARISON: No previous exam available. TECHNIQUE: 5 mm contiguous axial images were obtained from the thoracic inlet to the adrenal glands, after the administration of intravenous contrast. Automated exposure reduction (Auto mA/Smart mA) was utilized in compliance with ACR Image Wisely with DLP recorded in mGy-cm. F INDINGS: The pulmonary arterial tree shows no contrast filling defects to suggest pulmonary embolism. The aorta is clear. No aneurysm or dissection is identified. The cardiac structures are intact. The lungs are clear. No abnormal mass, consolidation or pleural fluids. No acute bony abnormality is found. IMPRESSION: Unremarkable CT study of the chest with contrast. at 2157 Reported and signed by: Bre Santizo M.D. CC: Hari Rae MD Technologist:RT Drew (R)(CT); Va CTDI: DLP: Trnscb Date/Time: 12/21/2018 (2157) Evie Orig Print D/T: S: 12/21/2018 (2201) PAGE 1 Signed Report- CT CHEST W/[id number] 21:58:00 Name: NOHEMY CLANCY [facility] the [facility] : 1995 Age/S: 23 / M [address] [address] Unit #: [id number] Loc: [place] [address] Phys: Hari Rae MD Acct: [id number] Dis Date: Status: ADM IN PHONE #: [phone] Exam Date: 12/21/20182124 FAX #: Reason: rule out PE EXAMS: CPT: [id number] CT CHEST W/CONTRAST 29523 CT OF THE CHEST WITH CONTRAST LOCATION: R16 CLINICAL HISTORY: Chest pain. History of PE. COMPARISON: No previous exam available. TECHNIQUE: 5 mm contiguous axial images were obtained from the thoracic inlet to the adrenal glands, after the administration of intravenous contrast. Automated exposure reduction (Auto mA/Smart mA) was utilized in compliance with ACR Image Wisely with DLP recorded in mGy-cm. FINDINGS: The pulmonary arterial tree shows no contrast filling defects to suggest pulmonary embolism. The aorta is clear. No aneurysm or dissection is identified. The cardiac structures are intact. The lungs are clear. No abnormal mass, consolidation or pleural fluids. No acute bony abnormality is found. IMPRESSION: Unremarkable CT study of the chest with contrast. at 2157 Reported and signed by: Bre Santizo M.D. CC: Hari Rae MD Technologist:RT Drew (R)(CT); Va CTDI: DLP: Trnscb Date/Time: 12/21/2018 (2157) t.SDR.JSL Orig Print D/T: S: 12/21/2018 (2490) PAGE 1 Signed Report- CT ANGIO NECK 2018-12-21 21:57:00 Name: NOHEMY CLANCY [facility] : 1995 Age/S: 23 / M [address] Unit #: [id number] Loc: [place] [address] Phys: Hari Rae MD Acct: [id number] Dis Date: Status: REG ER PHONE #: [phone] Exam Date: 12/21/20182129 FAX #: Reason: NIH 6 or > EXAMS: CPT: [id number] CT ANGIO NECK [address]7515 HISTORY:CVA Technique: Axial tomograms through the neck and brain were obtained after intravenous contrast utilizing a CTA protocol. Three-dimensional and multiplanar reformatted images are provided. Degree of stenosis is calculated based on NASCET criteria. Location: C3 COMPARISON:None FINDINGS: CTA NECK: Visualized lung apices are clear. The origins of the great vessels are patent. The common carotid arteries are patent throughout the course bilaterally. On the right the carotid bifurcation is patent . No significant stenosis demonstrated. The right internal carotid artery is patent throughout its course to the neck. On the left carotid bifurcation is patent . No significant stenosis. The left internal carotid artery is patent throughout its course. Both vertebral artery origins are demonstrated and patent. The vertebral arteries are patent throughout their course bilaterally. CTA BRAIN: The visualized intracranial internal carotid arteries are patent. The anterior cerebral arteries and middle cerebral arteries are patent bilaterally. No aneurysm identified. No large vessel occlusion or significant intracranial stenosis. An anterior communicating artery is demonstrated. The distal vertebral arteries, basilar artery, and posterior cerebral arteries are patent. Posterior communicating arteries are noted bilaterally. PAGE 1 Signed Report (CONTINUED) Name: [facility] : 1995 Age/S: 23 / M [address] [address] Unit #: [id number] Loc: [place] [address] Phys: Hari Rae MD Acct: [id number] Dis Date: Status: REG ER PHONE #: [phone] Exam Date: 12/21/20182129 FAX #: Reason: NIH 6or > EXAMS: CPT: [id number] CT ANGIO NECK 78087 <Continued> The major intracranial venous sinuses are patent. IMPRESSION: 1. No large vessel occlusion. No significant intracranial or extracranial vascular abnormality. at 2157 Reported and signed by: Rowdy Villafana M.D. CC: Hari Rae MD Technologist:RT Ammy(R)(CT); Va CTDI: DLP: Trnscb Date/Time: 12/21/2018 (2156) WayneRXC2 PAGE 2 Signed Report- CT ANGIO [id number] 21:57:00 Name: [facility] CL[facility] : 1995 Age/S: 23 / M [address] [address] Unit #: [id number] Loc: [place] [address] Phys: Hari Rae MD Acct: [id number] Dis Date: Status: REG ER PHONE #: [phone] Exam Date: 12/21/20182124 FAX #: Reason: NIH 6 or > EXAMS: CPT: [id number] CT ANGIO HEAD [address]37 HISTORY:CVA Technique: Axial tomograms through the neck and brain were obtained after intravenous contrast utilizing a CTA protocol. Three-dimensional and multiplanar reformatted images are provided. Degree of stenosis is calculated based on NASCET criteria. Location: F3HOXOFRYRSL:None FINDINGS: CTA NECK: Visualized lung apices are clear. The origins of the great vessels are patent. The common carotid arteries are patent throughout the course bilaterally. On the right the carotid bifurcation is patent . No significant stenosis demonstrated. The right internal carotid artery is patent throughout its course to the neck. On the left carotid bifurcation is patent . No significant stenosis. The left internal carotid artery is patent throughout its course. Both vertebral artery origins are demonstrated and patent. The vertebral arteries are patent throughout their course bilaterally. CTA BRAIN: The visualized intracranial internal carotid arteries are patent. The anterior cerebral arteries and middle cerebral arteries are patent bilaterally. No aneurysm identified. No large vessel occlusion or significant intracranial stenosis. An anterior communicating artery is demonstrated. The distal vertebral arteries, basilar artery, and posterior cerebral arteries are patent. Posterior communicating arteries are noted bilaterally. PAGE 1 Signed Report (CONTINUED) Name: NOHEMY CLANCY : 1995 Age/S: 23 / M [address] [facility] Unit #: [id number] Loc: [place] [address] Phys: Hari Rae MD Acct: [id number] Dis Date: Status: REG ER PHONE #: [phone] Exam Date: 12/21/20182124 FAX #: Reason: NIH 6or > EXAMS: CPT: [id number] CT ANGIO HEAD 93946 <Continued> The major intracranial venous sinuses are patent. IMPRESSION: 1. No large vessel occlusion. No significant intracranial or extracranial vascular abnormality. at 2157 Reported and signed by: Rowdy Villafana M.D. CC: Hari Rae MD Technologist:Dinah Mcwilliams RT(R)(CT); Va CTDI: DLP: Trnscb Date/Time: 12/21/2018 (215) Anup.RXC2 PAGE 2 Signed Report- CT ANGIO [id number] 21:57:00 Name: NOHEMY CLANCY JR [facility] : 1995 Age/S: 23 / M [address] [address] Unit #: [id number] Loc: [place] [address] Phys: Hari Rae MD Acct: [id number] Dis Date: Status: ADM IN PHONE #: [phone] Exam Date: 12/21/20182124 FAX #: Reason: NIH 6 or > EXAMS: CPT: [id number] CT ANGIO HEAD 06152 HISTORY:CVA Technique: Axial tomograms through the neck and brain were obtained after intravenous contrast utilizing a CTA protocol. Three-dimensional and multiplanar reformatted images are provided. Degree of stenosis is calculated based on NASCET criteria. Location: [id number]:None FINDINGS: CTA NECK: Visualized lung apices are clear. The origins of the great vessels are patent. The common carotid arteries are patent throughout the course bilaterally. On the right the carotid bifurcation is patent . No significant stenosis demonstrated. The right internal carotid artery is patent throughout its course to the neck. On the left carotid bifurcation is patent . No significant stenosis. The left internal carotid artery is patent throughout its course. Both vertebral artery origins are demonstrated and patent. The vertebral arteries are patent throughout their course bilaterally. CTA BRAIN: The visualized intracranial internal carotid arteries are patent. The anterior cerebral arteries and middle cerebral arteries are patent bilaterally. No aneurysm identified. No large vessel occlusion or significant intracranial stenosis. An anterior communicating artery is demonstrated. The distal vertebral arteries, basilar artery, and posterior cerebral arteries are patent. Posterior communicating arteries are noted bilaterally. PAGE 1 Signed Report (CONTINUED) Name: NOHEMY CLANCY JR [facility] : 1995 Age/S: 23 / M [address] [address] Unit #: [id number] Loc: [place] [address] Phys: Hari Rae MD Acct: [id number] Dis Date: Status: ADM IN PHONE #: [phone] Exam Date: 12/21/20182124 FAX #: Reason: NIH 6or > EXAMS: CPT: [id number] CT ANGIO HEAD 01464 <Continued> The major intracranial venous sinuses are patent. IMPRESSION: 1. No large vessel occlusion. No significant intracranial or extracranial vascular abnormality. at 215 Reported and signed by: Rowdy Villafana M.D. CC: Hari Rae MD Technologist:Valentin Mcwilliams RTCaitlyn)(CT); Va CTDI: DLP: Trnscb Date/Time: 12/21/2018 (2156) tJUAN [email or web address].[email or web address] Orig Print D/T: S: 12/21/2018 (2199) PAGE 2 Signed Report- CT ANGIO [id number] 21:57:00 Name: NOHEMY CLANCY [facility] the [facility] : 1995 Age/S: 23 / M [address] [address] Unit #: [id number] Loc: [place] [address] Phys: Hari Rae MD Acct: [id number] Dis Date: Status: ADM IN PHONE #: [phone] Exam Date: 12/21/20182129 FAX #: Reason: NIH 6 or > EXAMS: CPT: [id number] CT ANGIO NECK 88077 HISTORY:CVA Technique: Axial tomograms through the neck and brain were obtained after intravenous contrast utilizing a CTA protocol. Three-dimensional and multiplanar reformatted images are provided. Degree of stenosis is calculated based on NASCET criteria. Location: C3 COMPARISON:None FINDINGS: CTA NECK: Visualized lung apices are clear. The origins of the great vessels are patent. The common carotid arteries are patent throughout the course bilaterally. On the right the carotid bifurcation is patent . No significant stenosis demonstrated. The right internal carotid artery is patent throughout its course to the neck. On the left carotid bifurcation is patent . No significant stenosis. The left internal carotid artery is patent throughout its course. Both vertebral artery origins are demonstrated and patent. The vertebral arteries are patent throughout their course bilaterally. CTA BRAIN: The visualized intracranial internal carotid arteries are patent. The anterior cerebral arteries and middle cerebral arteries are patent bilaterally. No aneurysm identified. No large vessel occlusion or significant intracranial stenosis. An anterior communicating artery is demonstrated. The distal vertebral arteries, basilar artery, and posterior cerebral arteries are patent. Posterior communicating arteries are noted bilaterally. PAGE 1 Signed Report (CONTINUED) Name: NOHEMY CLANCY JR [facility] : 1995 Age/S: 23 / M [address] [address] Unit #: [id number] Loc: [place] [address] Phys: Hari Rae MD Acct: [id number] Dis Date: Status: ADM IN PHONE #: [phone] Exam Date: 12/21/20182129 FAX #: Reason: NIH 6or > EXAMS: CPT: [id number] CT ANGIO NECK 99249 <Continued> The major intracranial venous sinuses are patent. IMPRESSION: 1. No large vessel occlusion. No significant intracranial or extracranial vascular abnormality. at 2157 Reported and signed by: Rowdy Villafana M.D. CC: Hari Rae MD Technologist:RT Crissy(R)(CT); Va CTDI: DLP: Trnscb Date/Time: 12/21/2018 (2156) PatriciaR.[email or web address] Orig Print D/T: S: 12/21/2018 (2199) PAGE 2 Signed [id number] 21:41:00 Test Item Value Reference Range Interpretation Comments ALCOHOL (test code = ALC) < 3 MG/DL 0-10 N TROPONIN I [id number] 21:36:00 Test Item Value Reference Range Interpretation Comments TROPONIN I RAPID 0.00 ng/mL 0.00-0.08 N - The use o f serial (test code = sampling and te sting TROPIRAP) protocol is a recommended pra ctice- An elevated tro ponin level alone is often not sufficient for diagnosis of my ocardial infarction. PROTHROMBIN [id number] 21:30:00 Test Item Value Reference Range Interpretation Comments PT PATIENT (test code = PTP) 11.6 SECONDS 9.3-12.9 N INTERNATIONAL NORMAL RATIO 1.01 INR Unit 0.8-1.2 N (test code = INR) THROMBOPLASTIN TIME [id number] 21:30:00 Test Item Value Reference Range Interpretation Comments THROMBOPLASTIN TIME PARTIAL 39.1 SECONDS 26-35 H (test code = PTT) CBC W/O [id number] 21:21:00 Test Item Value Reference Range Interpretation Comments WHITE BLOOD CELL (test code = 4.3 K/mm3 3.5-11.0 N WBC) RED BLOOD CELL (test code = RBC) 5.59 M/mm3 4.70-6.10 N HEMOGLOBIN (test code = HGB) 17.0 G/DL 12.3-15.9 H HEMATOCRIT (test code = HCT) 48.5 % 35.8-46.7 H MEAN CELL VOLUME (test code = 86.8 Fl 86.3-98.9 N MCV) MEAN CELL HGB (test code = MCH) 30.4 pg 28.9-34.4 N MEAN CELL HGB CONCETRATION (test 35.1 G/DL 32.1-34.5 H code = MCHC) RED CELL DISTRIBUTION WIDTH (test 12.3 SD 11.5-14.5 N code = RDW) PLATELET COUNT (test code = PLT) 215.0 K/mm3 150-450 N MEAN PLATELET VOLUME (test code = 10.70 fL 7.0-9.6 H MPV) - CT HEAD/BRAIN W/O [id number] 21:18:00 Name: NOHEMY CLANCY [facility] : 1995 Age/S: 23 / M [address] [address] Unit #: [id number] Loc: [place] [address] Phys: Hari Rae MD Acct: [id number] Dis Date: Status: REG ER PHONE #: [phone] Exam Date: 12/21/20182109 FAX #: Reason: Code Str [employer] EXAMS: CPT: [id number] CT HEAD/BRAIN W/O CONT 83601 Exam: CT head without contrast. Location: H 12 History: Code Stroke Technique: Unenhanced spiral slices were taken from the base of the skull, through the vertex. One or more of the following dose reduction techniques were used: Automated exposure control, adjustment of the mA and/or kV according to patient size, and/or utilization of iterative reconstruction technique. Findings: No acute intracranial abnormality is identified. The brain parenchyma and the CSF spaces are unremarkable with a cavum septum lucidum and a cavum verge noted. No mass, midline shift, hemorrhage, hydrocephalus or edema is seen. The visualized paranasal sinuses are clear. The mastoid air cells are well pneumatized. The bony calvarium is intact. Impression: No acute intracranial abnormality. The call service notified Dr. Rae at 2117 hours. FOR INTERNAL CODING PURPOSES ONLY RESULT CODE: CVR at 2117 Reported and signed by: David Mead M.D. CC: Hari Rae MD Technologist:CHETNA Drew)(CT); Va CTDI: DLP: Trnscb Date/Time: 12/21/2018 (2117) [email or web address] Orig Print D/T: S: 12/21/2018 (2120) PAGE 1 Signed Report- CT HEAD/BRAIN W/O [id number] 21:18:00 Name: NOHEMY CLANCY [facility] : 1995 Age/S: 23 / M [address] [address] Unit #: [id number] Loc: [place] [address] Phys: Hari Rae MD Acct: [id number] Dis Date: Status: ADM IN PHONE #: [phone] Exam Date: 12/21/20182109 FAX #: Reason: Code Stroke EXAMS: CPT: [id number] CT HEAD/BRAIN W/O CONT 40245 Exam: CT head without contrast. Location: H 12 History: Code Stroke Technique: Unenhanced spiral slices were taken from the base of the skull, through the vertex. One or more of the following dose reduction techniques were used: Automated exposure control, adjustment of the mA and/or kV according to patient size, and/or utilization of iterative reconstruction technique. Findings: No acute intracranial abnormality is identified. The brain parenchyma and the CSF spaces are unremarkable with a cavum septum lucidum and a cavum verge noted. No mass, midline shift, hemorrhage, hydrocephalus or edema is seen. The visualized paranasal sinuses are clear. The mastoid air cells are well pneumatized. The bony calvarium is intact. Impression: No acute intracranial abnormality. The call service notified Dr. Rae at 2117 hours. FOR INTERNAL CODING PURPOSES ONLY RESULT CODE: CVR at 2117 Reported and signed by: David Mead M.D. CC: Hari Rae MD Technologist:Julia Mcwilliams RT(R)(CT); Va CTDI: DLP: Trnscb Date/Time: 12/21/2018 (2117) t.ADRIANA. Orig Print D/T: S: 12/21/2018 (2120) PAGE 1 Signed ReportCHEMISTRY 8 [id number] 21:16:00 Test Item Value Reference Range Interpretation Comments ISTAT-SODIUM (test code = NAP) mmol/L 135-146 ISTAT-POTASSIUM (test code = KP) mmol/L 3.5-4.9 ISTAT-CHLORIDE (test code = CLP) mmol/L 98-109 ISTAT-CARBON DIOXIDE (test code = mmol/L 24-29 N ISTAT-CO2) ISTAT CALCIUM IONIZED (test code = mmol/L 1.12-1.32 ISTAT-KEVIN) ISTAT-GLUCOSE (test code = GLUP) mg/dL 70-105 N ISTAT-BUN (test code = BUNP) mg/dL 8-26 N BEDSIDE CREATININE (test code = mg/dL 0.6-1.3 N CREATBED) GLOMERULAR FILTRATION RATE POC (test 120 77-179 N code = GFRBED) CHEMISTRY 8 [id number] 21:16:00 Test Item Value Reference Range Interpretation Comments ISTAT-SODIUM (test code = NAP) 140 mmol/L 135-146 N ISTAT-POTASSIUM (test code = KP) 3.6 mmol/L 3.5-4.9 N ISTAT-CHLORIDE (test code = CLP) 100 mmol/L 98-109 N ISTAT-CARBON DIOXIDE (test code = 25 mmol/L 24-29 N ISTAT-CO2) ISTAT CALCIUM IONIZED (test code 1.19 mmol/L 1.12-1.32 N = ISTAT-KEVIN) ISTAT-GLUCOSE (test code = GLUP) 102 mg/dL 70-105 N ISTAT-BUN (test code = BUNP) 13 mg/dL 8-26 N BEDSIDE CREATININE (test code = 1.0 mg/dL 0.6-1.3 N CREATBED) GLOMERULAR FILTRATION RATE POC 120 77-179 N (test code = GFRBED) [U] XRAY KNEE 1 OR 2 VWS RIGHT [id number] 11:33:00Images acquired, not reported on this accession number.[facility] Physicians[facility]ARD[facility]AC ENZYMES 2018-01-14 22:26:46071Ltgwlque HermannCARDIAC CSWVELJ3464-03-38 22:26:00<0.02 [facility] YWICN8490-32-04 22:26:17073Byrvztnx HermannCHEM PANEL 2018-01-14 22:26:0011[facility]annCHEM BBOPO9868-93-18 22:26:000.97[facility]annCHEM COCTY8107-25-11 22:26:0097[facility]annCHEM NVMAA2767-23-02 22:26:66048Hdxrsqsc [facility]annCHEM WGAEB4066-50-21 22:26:004.0[facility]annCHEM GUFHA4472-32-09 22:26:02024Pwsybbzd HermannCHEM DMTEO7549-54-32 22:26:0031 [facility]CHE[facility] XZVDP0647-10-08 22:26:0022[facility]annCHEM PANEL 2018-01-14 22:26:0095[facility]annCHEM TUPSH4226-69-22 22:26:008.8[facility]annCHEM UAEBV1561-67-02 22:26:000.4[facility]annCHEM POESF0987-93-91 22:26:0030[facility]annCHE[facility] IDORA5366-95-34 22:26:008.6[facility]annCHE[facility] JZRAS8634-38-25 22:26:004.2[facility]annCHE[facility] XXWZH0833-16-46 22:26:004.4 [facility] HermannCHEM NMALZ5462-23-96 22:26:00 Test Item Value Reference Range Interpretation Comments A/G Ratio (test code = A/G Ratio) 1.0 1 0.7-1.6 [facility] BYXLH1517-67-02 22:26:00 Test Item Value Reference Range Interpretation Comments B/C Ratio (test code = B/C Ratio) 11 1 6-25 [facility] QTJGX3147-12-84 22:26:0010.0[facility]annHEMATOLOGY 2018-01-14 22:26:00 Test Item Value Reference Range Interpretation Comments PTT (test code = PTT) 56.4 s 22.9-35.8 [facility] PcoglhsYYGPMUOJHW1455-72-11 22:26:10337Sfrghktj HermannHEMATOLOGY 2018-01-14 22:26:008.6[facility] EecqnokFYDRBWSFCD8509-85-63 22:26:0013.6[facility] JrijbqeKXSRPGQJLQ0677-20-30 22:26:0034.4[facility] AqgghgyJNKSOZHGGN5863-59-65 22:26:0089.4[facility] OmrcereSNDRBIQLHF4175-30-17 22:26:00 Test Item Value Reference Range Interpretation Comments MCH (test code = MCH) 30.8 pg 27.0-31.0 [facility] FaxpzvvVLQOPWKWFR8511-34-14 22:26:0015.8[facility] HermannHEMATOLOGY 2018-01-14 22:26:0046.0[facility] KoynkmrZRUDWYNCQX7096-86-82 22:26:005.15[facility] BdsorchOVQHRDSPFD9436-50-40 22:26:005.3[facility] MzavvdhHKYTLBAKSX1385-73-40 22:26:00 Test Item Value Reference Range Interpretation Comments INR (test code = INR) 1.70 1 0.85-1.17 [facility] HucdqolVXWGPGNFKF3274-48-77 22:26:00 Test Item Value Reference Range Interpretation Comments PT (test code = PT) 20.1 s 12.0-14.7 [facility] UnnrjapWEVRQRNYVC4895-28-53 22:26:002.8[facility]annHEMATOLOGY 2018-01-14 22:26:002.0[facility] YvevdwvNRWSVQJSPX8673-35-87 22:26:000.4[facility] FngdgpyUOKOZRFBAM0502-50-93 22:26:000.1[facility] EkgiycqJELKIPOYJW6975-76-11 22:26:000.5[facility] OwlsvcwIFUSKTMXQT7717-60-90 22:26:002.6[facility] WMNCDZKTOW5516-78-00 22:26:0037.8[facility] ItxowzjNQJEGQUHNC0696-68-99 22:26:00 52.2[facility] UnvuaipLBAOHISAAZ1080-22-05 22:26:006.9[facility][U] XRAY KNEE 1 OR 2 VWS RIGHT [id number] 08:26:00Images acquired, not reported on this accession number.[facility][U] XRAY KNEE 1 OR 2 VWS RIGHT [id number] 11:39:00Images acquired, not reported on this accession number.[facility] PhysiciansDRUG [id number] 22:30:00Negative *NA*(12/03/17 5:30 PM)[facility] HermannDRUG XGLJVT8016-25-19 22:30:00Positive *ABN*(12/03/17 5:30 PM)[facility] HermannDRUG QTJWHK5327-50-48 22:30:00Negative *NA*(12/03/17 5:30 PM)[facility]annDR[facility] QBVSFI3998-42-63 22:30:00Negative *NA*(12/03/17 5:30 PM)[facility]annDR[facility] CAHAHH3018-91-19 22:30:00Positive *ABN*(12/03/17 5:30 PM)[facility] HermannDRUG ACMCHS9561-47-71 22:30:00Negative *NA*(12/03/17 5:30 PM)[facility] HermannDRUG JMWGUJ5928-29-00 22:30:00Negative *NA*(12/03/17 5:30 PM)[facility]annDR[facility] UTPPLW2305-86-45 22:30:00See Note (12/03/17 5:30 PM)[facility]annCHEM QDWLQ9011-07-96 18:07:49140Eylufdeb HermannCHEM XTUXO4668-30-85 18:07:0099[facility]annCHEM KIFJS2382-44-35 18:07:0011.0[facility]annCHEM EUQMT8348-16-97 18:07:0029[facility]annCHEM EDKTG2475-49-15 18:07:004.0[facility]annCHEM XGSTD7821-60-71 18:07:00 Test Item Value Reference Range Interpretation Comments A/G Ratio (test code = A/G Ratio) 0.6 1 0.7-1.6 [facility]annCHE[facility] MGUUC0838-96-35 18:07:003.3[facility] HermannCHEM PANEL 2017-12-03 18:07:005.4[facility]annCHEM KWTLJ6082-38-05 18:07:008.7[facility] HermannCHEM QPDDE7842-90-86 18:07:00 Test Item Value Reference Range Interpretation Comments B/C Ratio (test code = B/C Ratio) 18 1 6-25 [facility]annCHE[facility] XKKXH2834-90-76 18:07:009.1[facility] HermannCHEM PANEL 2017-12-03 18:07:000.7[facility]annCHEM EOECF5114-82-35 18:07:0024[facility]annCHEM GRKPC9853-60-32 18:07:0064[facility]annCHEM MQOJK7458-30-66 18:07:0028[facility]annCHEM LVLCV1176-80-67 18:07:21718Uqzqkclv HermannCHEM KUODU9471-20-45 18:07:0019[facility]annCHEM ENWVG1821-89-00 18:07:001.03 [facility]CHE[facility] CQLMZ2641-31-99 18:07:24552Ezusfmun HermannHEMATOLOGY 2017-12-03 18:07:0010.0[facility] SxpyrokYHHOHPPLEA1657-98-02 18:07:0014.2[facility] CffursvNFXGZYIHIK4871-70-61 18:07:0074.4[facility] AdlvpiuTQKEOCLCHM9586-07-32 18:07:000.1[facility] IsvebnpHNZMUDHGSZ3996-16-82 18:07:001.5[facility] ENUFNAZZGK7952-53-61 18:07:007.7[facility] RskolszRNUDSFUMQN2142-90-11 18:07:000.3 [facility] ZykqaetKZMJVJUEEL1024-52-16 18:07:001.1[facility] HermannHEMATOLOGY 2017-12-03 18:07:001.0[facility] LumdusaLYXFVNQWVG7698-40-75 18:07:0012.9[facility] DkkmvxkIRLUOMYOFW1562-84-44 18:07:00734Jllxafqi NjzwzwzVBUJOQAGDC4187-78-26 18:07:0034.8[facility] XkezlsnXGBGKCAXIT0779-16-62 18:07:00 Test Item Value Reference Range Interpretation Comments MCH (test code = MCH) 31.1 pg 27.0-31.0 [facility] PinggysBFTLVRRSHC1369-69-16 18:07:004.87[facility] HermannHEMATOLOGY 2017-12-03 18:07:0043.5[facility] HdubctoKZMJXFURCV7739-98-04 18:07:0015.1[facility] KiskrgiZFPXUKTSLW8903-67-87 18:07:0089.3[facility] TunprxoOVGIHKCUXS5975-62-38 18:07:008.3[facility] ZwlpfsoWQPOXGFJYR6766-62-45 18:07:0010.4[facility] HermannCHEM ZLWAN6498-71-92 08:42:002.1[facility]annCHEM YOTQC3138-64-20 08:42:04962 [facility]annCHE[facility] RQKEF9768-05-40 08:42:007.7[facility] HermannCHEM PANEL 2017-12-03 08:42:00 Test Item Value Reference Range Interpretation Comments B/C Ratio (test code = B/C Ratio) 19 1 6-25 [facility]annCHE[facility] GOAAS6562-97-15 08:42:000.6[facility] HermannCHEM PANEL 2017-12-03 08:42:0054[facility]annCHEM AYUCV1214-18-21 08:42:00 Test Item Value Reference Range Interpretation Comments A/G Ratio (test code = A/G Ratio) 0.6 1 0.7-1.6 [facility]annCHE[facility] PGYPE4920-67-07 08:42:0018[facility] HermannCHEM PANEL 2017-12-03 08:42:0027[facility]annCHEM KLFUP7584-66-85 08:42:004.8[facility]annCHEM GGHAU4398-38-14 08:42:002.9[facility]annCHEM XCLEN2661-80-45 08:42:008.9[facility]annCHEM DWXWH3842-80-55 08:42:0032[facility]annCHE[facility] JXLJO5898-33-85 08:42:008.6[facility]annCHEM XHLRO4782-81-18 08:42:0019 [facility] HermannCHEM OOQXF5733-75-99 08:42:0071[facility] HermannCHEM PANEL 2017-12-03 08:42:78890Fzxosmxa HermannCHEM JYZBS8728-36-59 08:42:003.9[facility] HermannCHEM YHERJ6072-05-32 08:42:03558Irrdbeov HermannCHEM YUGGV8099-20-38 08:42:001.02[facility] QcdkgvrBYDIGQRVBU0057-82-05 08:42:0012.3[facility] OCACXDIQYI9722-41-25 08:42:0021.7[facility] RgrgolmNEKWFNRBBR1143-05-32 08:42:00 63.6[facility] PbwmtzcZEPKJUVRYX8810-18-67 08:42:000.8[facility] HermannHEMATOLOGY 2017-12-03 08:42:000.2[facility] FkbjnfkLBUNINNLIE2837-31-31 08:42:002.2[facility] MwrhpvcRYRUEEDOAA6778-15-80 08:42:001.4[facility] VtzzdutJQWEVRZOJG6271-40-38 08:42:004.1[facility] DnxscdiGPOJEDLGWK9873-51-82 08:42:000.1[facility] VCIRITBRVY3094-97-87 08:42:0089.9[facility] TeymuaaUQTQHZDIAD9936-55-52 08:42:00 40.2[facility] YyasaejEFJRXCGUTL0774-38-86 08:42:0013.8[facility] HermannHEMATOLOGY 2017-12-03 08:42:63041Bqlsthjw GvxvuafZNBHUCZLFY1978-58-56 08:42:0012.7[facility] BulpzrkUCWTPLQENG1456-04-58 08:42:00 Test Item Value Reference Range Interpretation Comments MCH (test code = MCH) 30.8 pg 27.0-31.0 [facility] NcwhytbZGNBFFFJFS5862-35-99 08:42:0034.3[facility] HermannHEMATOLOGY 2017-12-03 08:42:009.2[facility] CsdtdwuFFSRLEGSLI3143-63-04 08:42:006.4[facility] GgaxgpeZIVYVHNKDF8125-44-02 08:42:004.47[facility] HermannURINE AND STOOL 2017-12-02 19:49:00Negative (12/02/17 2:49 PM)[facility]annURINE AND STOOL 2017-12-02 19:49:00Negative (12/02/17 2:49 PM)[facility]annUR[facility] AND STOOL 2017-12-02 19:49:00Negative *NA*(12/02/17 2:49 PM)[facility]annUR[facility] AND STOOL 2017-12-02 19:49:00<1[facility]annURINE AND KJEYZ2544-78-65 19:49:002 [facility] AND FVDTQ6866-24-42 19:49:00Negative (12/02/17 2:49 PM) [facility] TWTNA5234-77-17 19:49:00Clear (12/02/17 2:49 PM) [facility] AND PIULW5821-94-67 19:49:00Yellow *NA*(12/02/17 2:49 PM) [facility] AND PAWQH9294-64-56 19:49:00 Test Item Value Reference Range Interpretation Comments UA pH (test code = UA pH) 8.0 1 5.0-8.0 [facility] AND HVCJP1306-10-90 19:49:00 Test Item Value Reference Range Interpretation Comments UA Spec Grav (test code = UA Spec 1.009 1 Grav) [facility]annCARDIAC QIGUVBM4415-06-26 18:37:00<0.02[facility] CARDIAC TAFWWEL8370-43-22 18:37:00<1.0[facility] HermannCARDIAC ENZYMES 2017-12-02 18:37:38644Blfvanjp HermannCARDIAC LNCXRPL3354-74-08 18:37:00<0.7 [facility]annCHEM IPVMG5842-38-74 18:37:0043[facility] HermannCHEM PANEL 2017-12-02 18:37:84982Blvsaejs HermannCHEM MZACT6874-82-07 18:37:39026Jydvimki HermannCHEM PSUVI3898-47-26 18:37:0014[facility] HermannCHEM GDXWH5102-59-78 18:37:0026[facility] HermannCHEM HTUPW4421-72-75 18:37:0058[facility] HermannCHEM YJVQW6578-34-08 18:37:0023[facility] HermannCHEM YAPQU7197-97-29 18:37:004.9 [facility]annCHEM JLMNI8915-27-82 18:37:00 Test Item Value Reference Range Interpretation Comments A/G Ratio (test code = A/G Ratio) 0.7 1 0.7-1.6 [facility]annCHEM FBHIV5203-69-97 18:37:000.7[facility] HermannCHEM PANEL 2017-12-02 18:37:001.03[facility] HermannCHEM TUKFG8707-56-74 18:37:72832Sibcnkvm HermannCHEM TZDUG9408-94-67 18:37:61462Nlqyyjug HermannCHEM TQHUV7326-05-17 18:37:004.3[facility] HermannCHEM BFXBP7921-48-00 18:37:0030[facility] HermannCHEM TXHRP8003-58-05 18:37:0013.3[facility] HermannCHEM PTJKP2132-05-53 18:37:008.7 [facility]annCHEM EUHCY1252-51-82 18:37:00 Test Item Value Reference Range Interpretation Comments B/C Ratio (test code = B/C Ratio) 14 1 6-25 [facility]annCHE[facility] AGFLW1172-32-79 18:37:003.2[facility] HermannCHEM PANEL 2017-12-02 18:37:008.1[facility] DrpawrtBASGLDFVJM8059-85-38 18:37:00 Test Item Value Reference Range Interpretation Comments PT (test code = PT) 13.5 s 12.0-14.7 [facility] AqdvebbQWPMYUXMBF9364-39-95 18:37:00 Test Item Value Reference Range Interpretation Comments INR (test code = INR) 1.03 1 0.85-1.17 [facility] JnggeddGIWGVOGDGQ2483-38-39 18:37:00 Test Item Value Reference Range Interpretation Comments PTT (test code = PTT) 42.7 s 22.9-35.8 [facility] KusvlehAUMBDXZRXN0714-50-59 18:37:44113Sjxmbski HermannHEMATOLOGY 2017-12-02 18:37:008.4[facility] TsqbpmaGTHVQBLBLL3771-64-71 18:37:0012.8[facility] RtrlxerOSKUEEKVGD5985-71-51 18:37:0015.1[facility] GqveighNCLUMUGASS9358-48-75 18:37:0044.7[facility] WtxwdxrNWYEXUCUBA6253-94-85 18:37:0091.8[facility] OUANZEMLZS4068-95-88 18:37:00 Test Item Value Reference Range Interpretation Comments MCH (test code = MCH) 31.0 pg 27.0-31.0 [facility] EagrlkaWZLJQUSYVM0053-23-97 18:37:0033.7[facility] HermannHEMATOLOGY 2017-12-02 18:37:004.87[facility] MmeangqZZKBCKMUAJ3934-35-02 18:37:0010.0[facility] MgdcwkjDFKACHEKDL2742-45-81 18:37:000.8[facility] TeavvqzNMKGEXQLYF0219-99-74 18:37:000.1[facility] FquluyvJXYBNUBCTR9282-75-40 18:37:007.8[facility] LJLVOYRBPL0016-00-64 18:37:001.2[facility] OawbpxhHQZECTDRRD3444-02-88 18:37:00 12.0[facility] VohfuvxESLJAKGTHJ1333-01-47 18:37:007.8[facility] HermannHEMATOLOGY 2017-12-02 18:37:001.5[facility] HfhdtgdYCECDWLKWA7516-66-77 18:37:000.4[facility] MyrqscwPCCUDPGVTE9388-27-01 18:37:0078.3[facility] HermannMR Knee wo contrast [id number] 10:16:00MRI of the Right Knee Without IV ContrastHistory: Injury at work January 2017 prior scope September 01, 2015Comparison Study: noneTechnique: The study was performed on a high field magnet without intrave nouscontrast.Findings:Menisci: There is a diminutive body and posterior horn of the medial meniscuspresumably representing prior partial medial meniscectomy. There is norecurrent tear. Lateral meniscusis intact.Cruciate Ligaments: There is an attenuated ACL suggesting probable chronicmoderate to high-grade partial tear without full-thickness rupture. No edemaidentified. PCL remains intact.CollateralLigaments: Medial collateral ligament is intact.Lateral collateral complex appears intact.The patellar and quadriceps tendons are intact.Degenerative signal in the distal quadriceps tendon.Osseous Structures: No bone contusions are identified.The articular cartilage of the medial and lateral compartment is preserved.Soft Tissues: There is a small joint effusion There is no Gonzalez's cyst.Patellofemoral Compartment: Patellar articular cartilage is intact.Trochlear articular cartilage is preserved.Medial and lateral patellar retinacula appear intact.Impression:Status post partial medial meniscectomy without recurrent tear.Diffusely attenuated ACL suggesting chronic moderate high-grade partial tearwithout full-thickness rupture. No acute posttraumatic edema.Dictation Code: 100--Read by: Mariya Medellin MDDictated Date/time: 11/07/17 17:00Electronically Signed by: Mariya Medellin MD 11/07/1816:03FINAL REPORTUn[facility] A[facility] PELVIS W/OZOV3842-65-47 21:30:[address] [address] Phone #: [phone] Fax #: [phone] Pt.Name: NOHEMY CLANCY JR Attending Tila: : 1995 Ordering Tila: Zachariah Ozuna Age/Sex: 19/M Location: [facility] Unit #: [id number] Status: Unk Admit Diagnosis: Radiology #: Exam Date: 03/18/2014 Exams: CPT Code: 304273258 CT ABD PELVIS W/CONT 41386 PROCEDURE: CT ABDOMEN AND PELVIS WITH C ONTRAST INDICATION: Abdominal pain COMPARISON: Noncontrast CT of 01/03/13 TECHNIQUE: Helical imaging was performed diaphragm through the symphysis with axial and coronal reformations obtained. IV CONTRAST: 100 mL Isovue-300. GI CONTRAST: 50 mL Omnipaque dilutedin water FINDINGS: LOWER CHEST: The lung bases are clear. SOLID ORGANS: Diminutive subcapsular low-attenuation focus in the superior medial segment left lobe of the liver less than 5 mm diameter is too small to characterize, in keeping with benign finding. The liver is otherwise normal. The gallbladder, pancreas, spleen, adrenal glands and kidneys are normal. BOWEL: The bowel is normal. Normal appendix. PERITONEUM: No free intraperitoneal fluid or air. RETROPERITONEUM: No adenopathy. The aorta is normal. PELVIS: Nopelvic mass. The urinary bladder is normal. MUSCULOSKELETAL: The skeleton is intact. IMPRESSION: No acute abnormality demonstrated to account for the patient's symptoms SL: 01 at 2130 PAGE 1 Signed Report (Continued) [place] [address] Phone #: [phone] Fax #: [phone] Pt.Name: NOHEMY CLANCY Attending Tila: : 1995 Ordering Tila: Zachariah Ozuna Age/Sex: 19/M Location: [facility] Unit #:[id number] Status: Unk Admit Diagnosis: Radiology #: Exam Date: 03/18/2014 Exams: CPT Code: 742293139 CT ABD PELVIS W/CONT 92159 <Continued> Reported and Signed by: Jack Valera M.D. CC: Zachariah Ozuna MD Technologist: RT Alfa(R) Transcribed Date/Time: 03/18/2014 (2129) Advertiser: Cate Orig Print D/T: S: 03/18/2014 (2133) PAGE 2 Signed Report- CT ABD PELVIS W/O [id number] 18:32:00 [facility] [address] [place] [address] Phone #: [phone] Fax #: [phone] Pt.Name: NOHEMY CLANCY JR Attending MIsisD.: : 1995 Ordering MJesusita.: Glynn Fisher Age/Sex: 17/M Location: [facility] Unit #: [id number] Status: Unk Admit Diagnosis: Radiology #: Exam Date: 01/03/2013 Exams: CPT Code: [id number] CT ABD PELVIS W/O CONT 10651 CT ABDOMEN AND PELVIS WITHOUT CONTRAST. HISTORY: Hematuria. No comparison. 3 mm helical images are obtained from lung bases through pubic symphysis without the administration of IV or p.o. contrast (stone protocol). FINDINGS: There is a normal noncontrast CT appearance of the liver,spleen, gallbladder, pancreas, adrenal glands, and kidneys. No renal stone or hydronephrosis bilaterally. Small bowel and colon show no acute abnormality. Trace free fluid pelvic fluid is nonspecific. IMPRESSION: Trace, nonspecific free pelvic fluid. Otherwise unremarkable noncontrast CT. SL:01 at 1832 Reported and Signed by: Abram Rainey M.D. CC: Technologist: RT Nelyl(R), RTT Transcribed Date/Time: 01/03/2013 (1831) Advertiser: Ne Orig Print D/T: S: 01/03/2013 (584) PAGE 1 Signed Report- XR HAND 3 + V LT 2012-01-25 12:39:00 [facility] [address] [place] [address] Phone #: [phone] Fax #: [phone] Pt.Name: NOHEMY CLANCY Attending Memo.: : 1995 Ordering MNyasia: Alma Monique Age/Sex: 16/M Location: [facility] Unit #: [id number] Status: Unk Admit Diagnosis: Radiology #: Exam Date: 01/25/2012 Exams: CPT Code: [id number] XR HAND 3 + [place] [address]68 Left-hand 3 views. HISTORY: Trauma. FINDINGS: It appears that the patient was unable to straighten out the fourth and fifth digits for the radiograph. A fracture is not clearly identified but elements of subluxation/dislocation involving the fifth metacarpal phalangeal joint and fifth proximal interphalangeal joint present. Degree of subluxation involving the fourth metacarpal phalangeal joint may also be present. Clinical correlation is requested. IMPRESSION: 1. Concern for subluxation/dislocation involving the fifth metacarpal phalangeal joint and fifth proximal interphalangeal joint. Potential subluxation involving the fourth metacarpal phalangeal joint also present. No fractures identified. Clinical correlation is requested. at 1240 Reported and Signed by: Oj Reardon M.D. CC: Alma Monique Technologist: Monroe Broussard, RT(R)(CT)(MR) Transcribed Date/Time: 01/25/2012 (3040) Advertiser: Rojelio Orig Print D/T: S: 01/25/2012 (7693) PAGE 1 Signed Report
[2020-08-13] MEDS ORDERED: HYDROCODONE/APAP 7.5/325 MG TAB ONE (18:14)
[2020-08-13] MEDS ORDERED: IBUPROFEN 400 MG TAB ONE (18:14)
--- NOTE | 2020-08-13 18:41 | RAD REPORT ---
EXAM DESCRIPTION: RAD - Foot Right 3 View - 08/13/2020 6:27 pm CLINICAL HISTORY: Right foot pain status post injury FINDINGS: No fracture or dislocation is seen
--- NOTE | 2020-08-13 18:45 | ER ---
Nurse's Notes [facility] Name: Lance Ambrocio Jr Age: 25 yrs Sex: Male : 1995 Arrival Date: 08/13/2020 Time: 16:21 Bed 6 Private MD: Diagnosis: Displaced fracture of navicular [scaphoid] of right foot Presentation: 08/13 16:32 Chief complaint: Patient states: I ran unto a metal cabinet and hit my R foot 1 hr [employer]. ca1 Pain and swelling on R foot. Coronavirus screen: Client denies travel out of the [place] in the last 14 days. At this time, the client does not indicate any symptoms associated with coronavirus-19. Ebola Screen: Patient negative for fever greater than or equal to 101.5 degrees Fahrenheit, and additional compatible Ebola Virus Disease symptoms Patient denies exposure to infectious person. Patient denies travel to an Ebola-affected area in the 21 days before illness onset. No symptoms or risks identified at this time. Initial Sepsis Screen: Does the patient meet any 2 criteria? No. Patient's initial sepsis screen is negative. Does the patient have a suspected source of infection? No. Patient's initial sepsis screen is negative. Risk Assessment: Do you want to hurt yourself or someone else? Patient reports no desire to harm self or others. Onset of symptoms was August 13, 2020. 16:32 Method Of Arrival: Wheelchair ca1 16:32 Acuity: DEMARIO 4 ca1 Historical: - Allergies: 16:34 No Known Allergies; ca1 - Home Meds: 16:34 None [Active]; ca1 - PMHx: 16:34 PE; ca1 - PSHx: 16:34 ACL surgery; Hernia repair; MCL surgery; ca1 16:35 Appendectomy; ca1 - Immunization history:: Flu vaccine is not up to date. - Social history:: Smoking status: Patient denies any tobacco usage or history of. Screenin:47 Abuse screen: Denies threats or abuse. Nutritional screening: No deficits noted. rb3 Tuberculosis screening: No symptoms or risk factors identified. Fall Risk None identified. Assessment: 17:47 General: Appears in no apparent distress. Behavior is calm, cooperative. Pain: rb3 Complains of pain in right foot Pain currently is 9 out of 10 on a pain scale. Pain began 2 hours ago. Pain: Quality of pain is described as throbbing. Neuro: Neuro: Level of Consciousness is awake, alert, obeys commands, Oriented to person, place, time, situation. Cardiovascular: Pulses are palpable in right dorsalis pedis artery. Respiratory: Airway is patent Respiratory effort is even, unlabored, Respiratory pattern is regular, symmetrical. GI: No signs and/or symptoms were reported involving the gastrointestinal system. : No signs and/or symptoms were reported regarding the genitourinary system. Musculoskeletal: Range of motion: limited in right foot Swelling present in right foot. Vital Signs: 16:32 BP 128 / 86; Pulse 84; Resp 16 S; Temp 98.6(TE); Pulse Ox 99% on R/A; Weight 74.84 kg ca1 (R); Height 5 ft. 8 in. (172.72 cm) (R); Pain 9/10; 16:32 Body Mass Index 25.09 (74.84 kg, 172.72 cm) ca1 ED Course: 16:21 Patient arrived in ED. am2 16:33 Triage completed. ca1 16:34 Arm band placed on right wrist. ca1 17:45 Isabel Wilson, RN is Primary Nurse. rb3 17:45 Jose Cruz Baker PA is PHCP. cp 17:45 Emerita Dorado MD is Attending Physician. cp 17:47 Patient has correct armband on for positive identification. Bed in low position. Call rb3 light in reach. Side rails up X 1. Pulse ox on. NIBP on. Ice pack to injury. 18:27 Foot Right 3 View XRAY In Process Unspecified. EDMS 18:43 Gustavo Perry MD is Referral Physician. cp 19:15 Primary Nurse role handed off by Isabel Wilson, MAURI sg Administered Medications: 18:00 Drug: Ibuprofen 800 mg Route: PO; rb3 18:45 Follow up: Response: Pain is decreased bp 18:00 Drug: Hydrocodone-Acetaminophen (7.5 mg-325 mg) 1 tabs Route: PO; rb3 18:46 Follow up: Response: Pain is decreased bp Outcome: 18:44 Discharge ordered by MD. cp 19:34 Patient left the ED. sg Signatures: Dispatcher [employer] EDMS Win Gonzalez RN RN sg Page, Corey, PA PA Kristy Herr am2 Alexy Cervantes, RN RN bp Regine Nunez, RN RN ca1 Isabel Wilson, RN RN rb3
--- NOTE | 2020-08-13 18:45 | EDPHYS ---
Physician Documentation [facility] Name: Lance Ambrocio Jr Age: 25 yrs Sex: Male : 1995 Arrival Date: 08/13/2020 Time: 16:21 Bed 6 Private MD: ED Physician Emerita Dorado HPI: 08/13 17:55 This 25 yrs old Black Male presents to ER via Wheelchair with complaints of Foot Injury.cp 17:55 The patient presents with an injury, pain, that is acute. The complaints affect the cp right foot. Context: resulted from a direct blow, from a solid object, cabinet at store, the patient is able to ambulate, with moderate difficulty. Onset: The symptoms/episode began/occurred just prior to arrival. Historical: - Allergies: 16:34 No Known Allergies; ca1 - Home Meds: 16:34 None [Active]; ca1 - PMHx: 16:34 PE; ca1 - PSHx: 16:34 ACL surgery; Hernia repair; MCL surgery; ca1 16:35 Appendectomy; ca1 - Immunization history:: Flu vaccine is not up to date. - Social history:: Smoking status: Patient denies any tobacco usage or history of. ROS: 18:05 Constitutional: Negative for body aches, chills, fever. cp 18:05 Cardiovascular: Negative for chest pain. cp 18:05 Respiratory: Negative for cough, shortness of breath, wheezing. 18:05 Abdomen/GI: Negative for abdominal pain, nausea, vomiting, and diarrhea. 18:05 MS/extremity: Positive for pain, swelling, tenderness, of the right foot. 18:05 Skin: Negative for cellulitis, rash. 18:05 All other systems are negative. Exam: 18:10 Constitutional: The patient appears in no acute distress, alert, awake, non-toxic, well cp developed, well nourished, uncomfortable. 18:10 Head/Face: Normocephalic, atraumatic. cp 18:10 Chest/axilla: Inspection: normal. 18:10 Cardiovascular: Rate: normal, Pulses: Pulses are 2+ in right dorsalis pedis artery. 18:10 Respiratory: the patient does not display signs of respiratory distress, Respirations: normal, no use of accessory muscles, no retractions. 18:10 Musculoskeletal/extremity: Extremities: grossly normal except: noted in the dorsum and medial aspect right foot: pain, swelling, tenderness, There is no evidence of deformity, Perfusion: the extremity is normally perfused throughout, the dorsum and medial aspect of right foot Severe pain noted. 18:10 Skin: cellulitis, is not appreciated, no rash present. Vital Signs: 16:32 BP 128 / 86; Pulse 84; Resp 16 S; Temp 98.6(TE); Pulse Ox 99% on R/A; Weight 74.84 kg ca1 (R); Height 5 ft. 8 in. (172.72 cm) (R); Pain 9/10; 16:32 Body Mass Index 25.09 (74.84 kg, 172.72 cm) ca1 Procedures: 19:25 Splinting: Splint applied to right foot using walking boot. applied by nurse. Patient cp tolerated well. MDM: 17:51 Patient medically screened. cp 18:10 Differential diagnosis: dislocation, closed fracture, contusion. cp 18:43 Data reviewed: vital signs, nurses notes, radiologic studies, plain films. cp 18:43 Test interpretation: by ED physician or midlevel provider: xrays of right foot show cp concern of fracture of right navicular bone. Counseling: I had a detailed discussion with the patient and/or guardian regarding: the historical points, exam findings, and any diagnostic results supporting the discharge/admit diagnosis, radiology results, the need for outpatient follow up, for definitive care, a orthopedic surgeon, to return to the emergency department if symptoms worsen or persist or if there are any questions or concerns that arise at home. Response to treatment: the patient's symptoms have markedly improved after treatment, and as a result, I will discharge patient. 08/13 16:35 Order name: Foot Right 3 View XRAY; Complete Time: 19:03 ca1 08/13 19:03 Interpretation: Report reviewed. cp 08/13 17:54 Order name: Ice pack; Complete Time: 17:54 rb3 08/13 18:31 Order name: Crutches cp 08/13 18:31 Order name: Walking boot cp Administered Medications: 18:00 Drug: Ibuprofen 800 mg Route: PO; rb3 18:45 Follow up: Response: Pain is decreased bp 18:00 Drug: Hydrocodone-Acetaminophen (7.5 mg-325 mg) 1 tabs Route: PO; rb3 18:46 Follow up: Response: Pain is decreased bp Disposition: 19:00 Chart complete. cp 08/14 18:45 Co-signature as Attending Physician, Emerita Dorado MD. ma2 Disposition: 08/13/20 18:44 Discharged to Home. Impression: Displaced fracture of navicular [scaphoid] of right foot. - Condition is Stable. - Discharge Instructions: Foot Pain. - Prescriptions for Naprosyn 500 mg Oral Tablet - take 1 tablet by ORAL route 2 times per day take with food; 20 tablet. Tylenol- Codeine #3 300-30 mg Oral Tablet - take 2 tablets by ORAL route every 8-12 hours As needed; 20 tablet. - Medication Reconciliation Form, Thank You Letter, Antibiotic Education, Prescription Opioid Use form. - Follow up: Gustavo Perry MD; When: 2 - 3 days; Reason: Recheck today's complaints. - Problem is new. - Symptoms have improved. Signatures: Dispatcher [employer] EDMS Win Gonzalez RN RN sg Jose Cruz Baker, VAISHNAVI PA cp Emerita Dorado MD MD ma2 Regine Nunez RN RN ca1 Isabel Wilson RN RN rb3 Alexy Cervantes RN bp Corrections: (The following items were deleted from the chart) 08/13 19:34 18:44 08/13/2020 18:44 Discharged to Home. Impression: Displaced fracture of navicular sg [scaphoid] of right foot. Condition is Stable. Forms are Medication Reconciliation Form, Thank You Letter, Antibiotic Education, Prescription Opioid Use. Follow up: Gustavo Perry; When: 2 - 3 days; Reason: Recheck today's complaints. Problem is new. Symptoms have improved. cp
[2020-08-13 22:26] VITALS: BP 128/86; TEMP 98.6; O2SAT 99
== END 2020-08-13 19:34 | disposition home or self-care (01) ==
LOC: ER 16:15
DX: S92.251A Displaced fracture of navicular [scaphoid] of right foot, initial encounter for closed fracture (principal); Z86.711 Personal history of pulmonary embolism; W22.09XA Striking against other stationary object, initial encounter; Y92.512 Supermarket, store or market as the place of occurrence of the external cause
CPT/HCPCS: 99283